=== PATIENT | female | born 1950 | race Caucasian/White ===

== ENCOUNTER → 2016-08-13 | Outpatient (CLI) | payer OTHER, BC ==
[~2016-08-13] VITALS: Ht 157.5 cm; Wt 87.2 kg
[~2016-08-13] MED LIST: AMBIEN 5 MG TABL5 M1 PO; CELEXA40 MG PO; ESTRACE1 MG PO; HALCION0.25 MG PO; INDERAL XL80 MG PO; LYRICA150 MG PO; MAXALT MLT ODT10 M1 PO; MAXALT PO; MOVANTIK25 MG PO; OXYCONTIN20 M1 PO; PERCOCET 5-3251 EACH PO; PREMPRO 0.3 MG1 EACH PO; ROBAXIN 750 MG750 M1 PO; TOPAMAX 25 MG T25 M1 PG; TOPAMAX50 MG PO; TRAMADOL 50 MG50 MG PO; VERAPAMIL HCL120 M1 PO; VERAPAMIL HCL120 M2 PO; WELLBUTRIN XL150 MG PO; ZOFRAN 4 MG ORAL4 MG PO; ZOFRAN ODT4 MG PO
--- NOTE | ~2016-08-13 | HPC ---
[facility] [place] [address] PAIN MANAGEMENT CONSULTATION Name: KAYODE KHAN Room #: REG BRENDAN Almendarez#: [id number] Admission: 08/13/16 Attend Phys: Moises Tariq DO Discharge: Date of : 48 Report #: [id number] THIS REPORT FOR: //name// CC: Alexandra Tariq The patient is a 66-year-old female well known to the pain clinic, typically seen for chronic headaches, requiring complex medication management. She has a component of myofascial pain. Last seen in the pain clinic 05/21/2016. Continued on OxyContin 20 mg b.i.d., Percocet 5/325, typically 120 tablets for 90 days, Maxalt as needed for acute exacerbation of headaches, Lyrica 150 mg b.i.d. prescribed by general labor physician. She has some opiate-induced constipation. I started Movantik. Last urine drug screen was approximately 1 year ago, 08/15/2015, positive for prescribed medications. He returns to pain clinic today, we had a prolonged visit from 13:53 to 14:20, greater than 50% of this 25+ minute visit was spent counseling the patient. She has increasing stress with significant health issues for her . He has been in and out of the hospital with an exacerbation of his chronic coronary artery disease, cardiac dysrhythmia, requiring catheter node ablation and apparently intraocular hemorrhage with decreased visual acuity in one eye. With this, the patient notes headaches have been worse. She notes her pain today 10/29. Describes chronic headaches, exacerbated with activity and weather changes. PHYSICAL EXAMINATION: Shows 66-year-old female, BMI is 35.2 kilograms per meter squared. Blood pressure is 133/79, pulse is 99, respirations are 16, has a little photophobia. Cervical range of motion is limited. Thyroids modestly enlarged. Upper extremity strength is diminished, but symmetric. Heart is regular rhythmical without murmur. Lungs are clear to auscultation. Abdomen is benign, moderately endomorphic build. Gait is tandem. We reviewed the fact that opiate medications are being used to provide analgesia adequate to support activities of daily living, not attempting to achieve a specific pain score on the 0-10 Visual Analog Scale. The current opiate medications are providing sufficient analgesia to allow the patient to participate in activities of daily living. The patient is not exhibiting any aberrant behavior suggestive of drug diversion. The patient is not having any adverse reactions to medications. The patient is not suffering from daytime somnolence or mental acuity changes. The patient is managing opiate-induced constipation with appropriate lwgv-lro-cyjbzpy agents and dietary considerations. The patient was counseled on concern for caution with operating a motor vehicle while using opiate medications. [address] [address] PAIN MANAGEMENT CONSULTATION Name: KAYODE KHAN Room #: REG BRENDAN Almendarze#: [id number] Admission: 08/13/16 Attend Phys: Moises Tariq DO Discharge: Date of : 48 Report #: [id number] A physical exam was performed and the patient's functional status was evaluated. All patients with back pain were advised against the bed rest greater than 4 days and were advised to return to normal activities. Pain score assessment was noted and the treatment plan was reviewed with the patient. All current medications, both prescribed and OTC were reviewed and reconciled on the electronic medical record. Tobacco screening was accomplished and smoking cessation was advised when indicated. BMI was noted and diet/exercise modification was recommended for all patients following outside normal parameters. I reviewed with the patient today their responsibilities to safeguard prescription medications, reviewed their responsibility to utilize medications only as prescribed by the physician. They are to seek and receive pain medications only from 1 physician group ( [facility]). They are to use 1 pharmacy and keep the clinic informed if they change pharmacies. Their responsibilities include making followup visits in a timely fashion and to avoid abrupt discontinuation of medication usage. Their responsibilities further include bringing their medications (bottles from the pharmacy with residual pills) to the visit for possible confirmation of pill counts and the patient understands it is their responsibility to submit to random drug screens to ensure both that the medications prescribed are present, and that no other controlled substances are present. All prescriptions provided today were generated electronically. ASSESSMENT: Chronic headaches, requiring complex medication management, migraine component, myofascial pain requiring complex medication management, stable on baseline opiate, OxyContin 20 mg b.i.d., Percocet 5/325 p.r.n., limit 120 tablets for 90 days, Maxalt for acute migraine headache 10 mg tablet, limit 9 tablets in 30 days; Halcion 0.25 at bedtime. RECOMMENDATIONS: We elected to discontinue Movantik due to lack of efficacy. The patient notes it was quite helpful initially, but she seems to become somewhat tolerant to the effects. She is continuing with stool softeners, MiraLax, fluid, etc. Lastly, we talked about migraine prophylaxis. With blood pressure of 133/79, pulse of 99, we have elected to start propranolol extended release 80 mg at bedtime for 7 days, increased to 2 tablets daily. The patient cautioned about lightheadedness, presyncope with position changes, postural hypotension. If any of these come problematic, she is to drop back to 1 propranolol at bedtime. Urine drug screen was accomplished today. No aberrant behavior suggestive for drug diversion, simply complying with our opiate consent to treat contract. [facility] [address] [place] [address] PAIN MANAGEMENT CONSULTATION Name: KAYODE KHAN [facility] [id number] Admission: 08/13/16 Attend Phys: Moises Tariq DO Discharge: Date of : 48 Report #: [id number] The patient was discharged in good and stable condition. Follow up in 3 months for reevaluation. <ELECTRONICALLY SIGNED> By: Moises Tariq DO 08/14/16 0713 1518 2324 Moises Tariq DO /nt
[2016-08-13 13:51] VITALS: BP 133/79
== END | disposition home or self-care (01) ==
LOC: PAIN 07:21
DX: M79.1 Myalgia (principal); I25.10 Atherosclerotic heart disease of native coronary artery without angina pectoris; I49.9 Cardiac arrhythmia, unspecified; G43.909 Migraine, unspecified, not intractable, without status migrainosus

== ENCOUNTER → 2016-11-13 | Outpatient (CLI) | payer OTHER, BC ==
[~2016-11-13] VITALS: Ht 157.5 cm; Wt 85.7 kg
[~2016-11-13] MED LIST changes: +CYMBALTA30 MG PO
--- NOTE | ~2016-11-13 | HPC ---
[facility] [place] [address] PAIN MANAGEMENT CONSULTATION Name: KAYODE KHAN [facility] #: [facility] [id number] Admission: 11/13/16 Attend Phys: Moises Tariq DO Discharge: Date of : 48 Report #: [id number] THIS REPORT FOR: //name// CC: Alexandra Tariq HISTORY OF PRESENT ILLNESS: The patient is a 66-year-old female being treated for chronic headaches, myofascial pain requiring complex medication management. The patient was last seen 08/13/2016. Continued on OxyContin 20 mg b.i.d.; Percocet 5/325, 120 tablets typically lasts for 90 days. Maxalt for acute exacerbation of headaches, Lyrica 150 mg b.i.d. and Movantik for opioid-induced constipation. She returns to pain clinic today noting medications typically help with her chronic headaches. She still rates her pain at 8 on VAS. Notes, she has had a headache daily; she tells me she has not had a single day in the past year which she did not have some cervical headache. She notes activity and weather changes do make headaches worse. Medication, rest and cold as well as dark environment seem to help some with her subjective symptoms. PHYSICAL EXAMINATION: GENERAL: Unchanged. A 66-year-old female, BMI is 34.6 kilograms per meter squared. VITAL SIGNS: Stable. NEUROLOGIC: Cranial nerves 2-12 are grossly intact. HEENT: Pupils equal, reactive to light and accommodation. Extraocular muscles are intact. She does have pinpoint pupils but again they are reactive. NECK: Cervical range of motion is limited, some diffuse tenderness in the splenius capitis and trapezius. No discrete trigger points noted. We reviewed the fact that opiate medications are being used to provide analgesia adequate to support activities of daily living, not attempting to achieve a specific pain score on the 0-10 Visual Analog Scale. The current opiate medications are providing sufficient analgesia to allow the patient to participate in activities of daily living. The patient is not exhibiting any aberrant behavior suggestive of drug diversion. The patient is not having any adverse reactions to medications. The patient is not suffering from daytime somnolence or mental acuity changes. The patient is managing opiate-induced constipation with appropriate ekny-lhb-epxqtxa agents and dietary considerations. The patient was counseled on concern for caution with operating a motor vehicle while using opiate medications. A physical exam was performed and the patient's functional status was evaluated. All patients with back pain were advised against the bed rest greater than 4 days and were advised to return to normal activities. Pain score assessment was noted and the treatment plan was reviewed with the patient. All current medications, both prescribed and OTC were reviewed and reconciled on the electronic medical record. Tobacco screening was accomplished and smoking [address] [address] PAIN MANAGEMENT CONSULTATION Name: KAYODE KHAN Room #: REG [facility] [id number] Admission: 11/13/16 Attend Phys: Moises Tariq DO Discharge: Date of : 48 Report #: [id number] cessation was advised when indicated. BMI was noted and diet/exercise modification was recommended for all patients following outside normal parameters. I reviewed with the patient today their responsibilities to safeguard prescription medications, reviewed their responsibility to utilize medications only as prescribed by the physician. They are to seek and receive pain medications only from 1 physician group ( [facility]). They are to use 1 pharmacy and keep the clinic informed if they change pharmacies. Their responsibilities include making followup visits in a timely fashion and to avoid abrupt discontinuation of medication usage. Their responsibilities further include bringing their medications (bottles from the pharmacy with residual pills) to the visit for possible confirmation of pill counts and the patient understands it is their responsibility to submit to random drug screens to ensure both that the medications prescribed are present, and that no other controlled substances are present. All prescriptions provided today were generated electronically. ASSESSMENT: Chronic headaches, migraine component likely stress component, requiring high-risk complicated medication management. RECOMMENDATION: Discussion with the patient today about therapeutic options, ultimately have elected to continue baseline medications unchanged including OxyContin 20 mg b.i.d. and Percocet 5/325, limit 120 tablets for 90 days. We did talk about Botox injections for chronic migraines. She certainly meets the criteria having failed calcium channel and sodium channel membrane stabilizing agents due to hypotension, having failed Maxalt, she currently utilizes this and still has a "headache daily." She has failed membrane stabilizing agents, currently on Lyrica again with ongoing headaches though she feels there is some efficacy with current medication. The patient was discharged in good and stable condition. Told her we can consider Botox at some future point. Otherwise, we will see her back in 3 months for reevaluation and medication renewal. Last urine drug screen 08/13/2016 was positive for prescribed medications and no others. <ELECTRONICALLY SIGNED> By: Moises Tariq DO 11/16/16 1253 1520 2211 Moises Tariq DO /nt
[2016-11-13 14:42] VITALS: BP 145/75
== END ==
LOC: PAIN 07:09
DX: R51 Headache (principal)

== ENCOUNTER → 2017-05-06 | Outpatient (CLI) | payer OTHER, BC ==
[~2017-05-06] VITALS: Ht 157.5 cm; Wt 80.5 kg
[~2017-05-06] MED LIST changes: +FROVA2.5 MG PO; +HALCION0.125 MG PO; +MAXALT MLT10 MG PO; +NORTRIPTYLINE H10 M2 PO; +OXYCONTIN15 MG PO
--- NOTE | ~2017-05-06 | HPC ---
[facility] [place] [address] PAIN MANAGEMENT CONSULTATION Name: KAYODE KHAN Room #: REG [facility] Erickson#: [id number] Admission: 05/06/17 Attend Phys: Moises Tariq DO Discharge: Date of : 48 Report #: [id number] THIS REPORT FOR: //name// CC: Alexandra Tariq The patient is a 67-year-old female being treated for headaches, chronic pain syndrome requiring complex medication management. Last seen in the pain clinic on 02/05/2017. Continued on OxyContin 20 mg b.i.d., Percocet 5/325, up to 4 a day. Maxalt, Lyrica and occasional Zofran for nausea. The patient returns to pain clinic today. She has a followup appointment with an ENT, is scheduled, has some right otitis media, which has exacerbated headaches. Otherwise, functional assessment tool scores pain is 59/70. Subjective pain is 9 on a VAS. Physical exam is relatively unchanged. A 67-year-old female, BMI is 32.4 kilograms per meter squared. Vital signs are stable as noted on the EMR. She seems upbeat today. Cervical range of motion is modestly limited. Subjective pain in the bilateral posterior occipital area and little photophobia. We reviewed her opiate consent to treat contract, signed 11/18/2015. We reviewed the patient's last random drug screen on 08/13/2016, positive for prescribed medications and no others. ASSESSMENT: Symptomatic chronic headaches, chronic pain syndrome requiring high risk complex medication management. RECOMMENDATIONS: Long discussion with the patient today about therapeutic option. We had tried to get the patient approved for Botox injections, often helpful for chronic headaches, but was unable to get this approved. Today, we did elect to trial some nortriptyline 10 mg 1 or 2 at bedtime as a headache prophylaxis along with her other current medications including OxyContin 20 mg b.i.d., Percocet 5/325, up to 4 a day, Maxalt, Lyrica, and p.r.n. Zofran. Follow up in 2 months for reevaluation, earlier if needed. <ELECTRONICALLY SIGNED> By: Moises Tariq DO 05/12/17 0724 0711 1034 Moises Tariq DO /nt
[2017-05-06 11:42] VITALS: BP 140/86
== END ==
LOC: PAIN 07:13
DX: G89.29 Other chronic pain (principal); R51 Headache; Z79.899 Other long term (current) drug therapy

== ENCOUNTER → 2017-07-29 | Outpatient (CLI) | payer OTHER, BC ==
[~2017-07-29] VITALS: Ht 157.5 cm; Wt 80.5 kg
[~2017-07-29] MED LIST changes: -MAXALT MLT10 MG PO; -OXYCONTIN15 MG PO
--- NOTE | ~2017-07-29 | HPC ---
[facility] [place] [address] PAIN MANAGEMENT CONSULTATION Name: KAYODE KHAN Room #: REG [facility] M..#: [id number] Admission: 07/29/17 Attend Phys: Moises Tariq DO Discharge: Date of : 46 Report #: [id number] THIS REPORT FOR: //name// CC: Alexandra Tariq HISTORY OF PRESENT ILLNESS: The patient is a 67-year-old female, long known to the pain clinic, being treated for chronic headaches, requiring complex medication management, component of myofascial pain. Last seen in pain clinic on 05/06/2017, continue on baseline medication. The patient returns to the pain clinic today noting medications, continue to be effective with the caveat that rotation from Maxalt, Imitrex was not terribly effective. She does note that headaches continue to be problematic. She notes daily headaches that she has had since age 11. She notes headaches the last several hours include nausea, photophobia, occasional emesis and phonophobia. She rates the pain 8 on a VAS at present. Pain impact score is quite high at 59/70. PHYSICAL EXAMINATION: GENERAL: Reveals a 67-year-old female. VITAL SIGNS: BMI is 32.4 kilograms per meter squared. Blood pressure 147/73, pulse 109 and respirations 20. NEUROLOGICAL: Cranial nerves 2 through 12 are grossly intact. She does have some photophobia. MUSCULOSKELETAL: Cervical range of motion is modestly limited. Upper extremity strength is preserved. Gait is tandem. Lower extremity strength is preserved. Opiate risk assessment tool was signed on 11/18/2015, reviewed the patient's risks and responsibilities. Long discussion with the patient today about therapeutic option. I have taken the liberty of filling out a Botox application form noting the patient has failed to prophylactic agents, years of verapamil and most recently, I started the patient on nortriptyline last visit, she tried this for 1 month with dysphoria and hallucinations and she quit. She has failed Fiorinal, Imitrex, Maxalt and multiple NSAID agents. By definition, she does meet all criteria for Botox injections. We will refer the patient's Botox request form and documentation to Dr. Lavonne Parmar. I have taken the liberty of renewing current narcotic medication, unchanged; OxyContin 20 mg b.i.d. and Percocet 5/325, limit 4 a day. This equates to 60 mg oxycodone or 90 mg of morphine equivalents. We did talk about risks of chronic opiate use. [address] [address] PAIN MANAGEMENT CONSULTATION Name: KAYODE KHAN Room #: REG [facility].#: [id number] Admission: 07/29/17 Attend Phys: Moises Tariq DO Discharge: Date of : 48 Report #: [id number] The patient was discharged in good and stable condition. Medication renewed. Follow up in 2 months for reevaluation. I did discuss with the patient that I will be leaving the practice. She initially started with Dr. Arun Webb. She would like to return to his care. I will see if her schedule allows to see her or if she will need to find another health care provider and her network. Discharged in good and stable condition. <ELECTRONICALLY SIGNED> By: Moises Tariq DO 08/02/17 0711 1627 2335 Moises Tariq DO /nt
[2017-07-29 14:42] VITALS: BP 147/73
== END ==
LOC: PAIN 05:55
DX: R51 Headache (principal); Z79.899 Other long term (current) drug therapy

== ENCOUNTER → 2017-12-31 | Outpatient (CLI) | payer OTHER, BC ==
[~2017-12-31] VITALS: Ht 157.5 cm; Wt 80.7 kg
[~2017-12-31] MED LIST changes: +MAXALT MLT10 MG PO; +OXYCONTIN15 MG PO
--- NOTE | ~2017-12-31 | HPC ---
[facility] [place] [address] PAIN MANAGEMENT CONSULTATION Name: KAYODE KHAN Room #: REG BRENDAN TedMecheDrake#: [id number] Admission: 12/31/17 Attend Phys: Carlota Ewing MD Discharge: Date of : 48 Report #: [id number] THIS REPORT FOR: //name// CC: Carlota Brooks DATE OF SERVICE: 12/31/2017 PRIMARY CARE PHYSICIAN: Alexandra Brooks M.D. CHIEF COMPLAINT: Headaches, here for medication refill. HISTORY OF PRESENT ILLNESS: The patient is a 67-year-old female who has been followed by Dr. Moises Tariq. She has history of chronic headaches. She has a mixed disorder including some migraines as well as tension headaches. She also suffers from fibromyalgia. She has been treated with complex medical management by Dr. Tariq. The patient feels that her medications have been helpful. She has had a problem with headaches since age 11. Rates her pain today as an 8/10. Notes that the pain has changed secondary to the change in the weather. It has gone from 70 degrees to about 50 degrees. She notes that sometimes rest as well as use of cold and a dark environment can be beneficial. She returns today with a desire to have renewal of her medications. ALLERGIES: COMPAZINE, DURACEF. PAST MEDICAL HISTORY: Colon problems, stomach problems, joint disease/arthritis, history of ulcers. PAST SURGICAL HISTORY: Hemorrhoid surgery in 1967, calcium deposit in breast 1985. REVIEW OF SYSTEMS: As per HPI. PAIN CLINIC ASSESSMENT AND PQRS: 1. 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 The patient has not been treated for rheumatoid arthritis. 2. Height 5 feet 2 inches, weight 177 pounds, BMI is 32.5. 3. Vital signs: Blood pressure 140/79, pulse is 109, respiratory rate 16, room air saturation is 97%. 4. Pain intensity /10. 5. Fall risk. The patient has not fallen in the last 3 months. 6. Blood thinner. The patient is not on a blood thinning medication. 7. Hypertension. The patient is not being treated for hypertension. 8. Opioid therapy. The patient receives her medications from one source, the pain clinic. [address] [address] PAIN MANAGEMENT CONSULTATION Name: KAYODE KHAN Room #: REG [facility]#: [id number] Admission: 12/31/17 Attend Phys: Carlota Ewing MD Discharge: Date of : 48 Report #: [id number] 9. Risk assessment tool, low risk 0/3 for opioid use. 10. Functional assessment tool, 59/70. 11. Recreational drug use: The patient denies. 12. Tobacco: The patient has never smoked. 13. Alcohol: The patient denies frequent use of alcoholic beverages. PHYSICAL EXAMINATION: GENERAL: The patient is a well-developed, well-nourished, white female. Affect is appropriate. Speech is fluent. HEENT: Normocephalic, atraumatic. Extraocular eye muscles intact. Sclerae nonicteric. Mucous membranes are moist. The patient states that she is having some problems with her left lower jaw. There is some swelling in this area. She has been told that there might be some infection in this area. The patient has some thinning of her hair with alopecia. Complains of headache pain. HEART: Regular rate. The patient states that she does have a mitral valve problem with regurgitation. Overall, it is not clinically causing the problems. RECOMMENDATIONS: We discussed treatment options with the patient. At this juncture, she finds her medications are helpful. We will continue with the prescriptions. She found that Frova was helpful. At this juncture, she would like to return to Maxalt 10 mg. We have written for this medication. A script for OxyContin 15 mg, Percocet 5 mg, Zofran 4 mg, Halcion 0.125 mg and Maxalt 10 mg have been rewritten. The patient will follow up in the near future. We would like to thank you for letting us participate in her care. We hope she continues to improve. <ELECTRONICALLY SIGNED> By: Carlota Ewing MD 01/03/18 1125 1819 0212 Carlota Ewing MD /[facility]
[2017-12-31 14:44] VITALS: BP 140/79
== END ==
LOC: PAIN 07:09
DX: G44.229 Chronic tension-type headache, not intractable (principal); Z79.899 Other long term (current) drug therapy

== ENCOUNTER → 2018-02-28 | Outpatient (CLI) | payer OTHER, BC ==
[~2018-02-28] VITALS: Ht 157.5 cm; Wt 80.3 kg
--- NOTE | ~2018-02-28 | HPC ---
[facility] [place] [address] PAIN MANAGEMENT CONSULTATION Name: KAYODE KHAN Room #: REG De Almendarez#: [id number] Admission: 02/28/18 Attend Phys: Michelle Louise Discharge: Date of : 46 Report #: [id number] THIS REPORT FOR: //name// CC: Michelle Louise Alexandra Kimball DATE OF SERVICE: 02/28/2018 CHIEF COMPLAINT: Headache and tooth pain. Here for medication refill. HISTORY OF PRESENT ILLNESS: This is a very pleasant 67-year-old female who has been seen in the pain clinic for several years by Dr. Moises Tariq. She has a history of chronic headaches. She has a mixed disorder including some migraines as well as tension headaches and she also has fibromyalgia. She is here today for medication refill. She tells me that aside from her headaches, she has been having teeth pain. She has been having to have several dental procedures done including a root canal and pulling of teeth and several other things that she listed for her mouth. She has had to take more Percocet since her last appointment. The patient tells me she typically takes 1 Percocet a day because of all this oral dental work and oral surgery she is needing. She had to take more tablets a day. The farmworker [employer] did offer her a narcotic script. The patient refused since she is under contract here at the clinic, so she made an appointment to come back and discuss other further treatment options regarding her oral surgeries that still need to be done. MEDICATIONS: Compazine and Duricef. Current list of medications: She takes Percocet 5 mg/325 one daily, Halcion 0.125 at bedtime, Maxalt 10 mg at onset of headache, OxyContin 50 mg b.i.d., Zofran 4 mg every 8 hours p.r.n., Frova 2.5 mg onset of headache, Cymbalta 90 mg daily, Prempro 0.3/1.5 mg daily, Robaxin 750 mg, Tylenol Extra Strength 500 mg p.r.n. PQRS: 1. She has a history of rheumatoid arthritis involving her hands and fingers. She is not being treated for rheumatoid arthritis. 2. Height is 5 feet 2 inches, weight is 177, BMI is 32.4. 3. Vital signs: Blood pressure 147/78, pulse is 106, respirations 16, oxygen sat is 96%. 4. Her pain score is 8/10. 5. Fall risk. She denies dizziness, does not need help walking or standing and has not fallen in the last 3 months. 6. She is not on any blood thinners. She does not take antihypertensive medicines. 7. Opioid therapy is greater than 6 weeks, therefore, an opioid signed contract is on the chart. 8. Risk assessment tool is low. Her functional assessment is 59/70. 9. Recreational drug use. She denies. She is not a [place] [address] PAIN MANAGEMENT CONSULTATION Name: KAYODE KHAN Room #: REG BRENDAN Almendarez#: [id number] Admission: 02/28/18 Attend Phys: Michelle Louise Discharge: Date of : 46 Report #: [id number] alcohol. We did check her prescription monitoring system. The patient is feeling appropriately from her narcotics by doctor within this pain group. No aberrant behaviors noted and the patient tells me that she safeguards her medications. Her urine drug screen is just a year old. We will repeat that at the next visit. PHYSICAL EXAMINATION: GENERAL: This is a well-developed, well-nourished white female that appears her stated age. Her affect is appropriate and her speech is fluent. HEENT: Normocephalic, atraumatic. Extraocular eye muscles are intact. Sclerae is nonicteric. Mucous membranes are moist. The patient does have tenderness in her mouth area from recent dental procedures. The patient has some thinning of her hair with alopecia. She complains of headache pain. NECK: No JVD or adenopathy. EXTREMITIES: Range of motion is adequate. Muscle strength is judged to be 5/5 in all major muscle groups in upper and lower extremities. IMPRESSION: 1. Chronic headaches including mixed disorder from migraines and tension headaches. 2. Fibromyalgia. 3. Mouth pain related to oral surgery. 4. Osteoarthritis. 5. Management of high risk medications following opioid written agreement. We reviewed the fact that opiate medications are being used to provide analgesia adequate to support activities of daily living, not attempting to achieve a specific pain score on the 0-10 Visual Analog Scale. The current opiate medications are providing sufficient analgesia to allow the patient to participate in activities of daily living. The patient is not exhibiting any aberrant behavior suggestive of drug diversion. The patient is not having any adverse reactions to medications. The patient is not suffering from daytime somnolence or mental acuity changes. The patient is managing opiate-induced constipation with appropriate sslp-fiy-jnzxsib agents and dietary considerations. The patient was counseled on concern for caution with operating a motor vehicle while using opiate medications. A physical exam was performed and the patient's functional status was evaluated. All patients with back pain were advised against the bed rest greater than 4 days and were advised to return to normal activities. Pain score assessment was noted and the treatment plan was reviewed with the patient. All current medications, both prescribed and OTC were reviewed and reconciled on the electronic medical record. Tobacco screening was accomplished and smoking cessation was advised when indicated. BMI was noted and diet/exercise modification was recommended for all patients following outside normal parameters. [address] [address] PAIN MANAGEMENT CONSULTATION Name: KAYODE KHAN Room #: REG [facility].#: [id number] Admission: 02/28/18 Attend Phys: Michelle Louise Discharge: Date of : 46 Report #: [id number] I reviewed with the patient today their responsibilities to safeguard prescription medications, reviewed their responsibility to utilize medications only as prescribed by the physician. They are to seek and receive pain medications only from 1 physician group ( [facility]). They are to use 1 pharmacy and keep the clinic informed if they change pharmacies. Their responsibilities include making followup visits in a timely fashion and to avoid abrupt discontinuation of medication usage. Their responsibilities further include bringing their medications (bottles from the pharmacy with residual pills) to the visit for possible confirmation of pill counts and the patient understands it is their responsibility to submit to random drug screens to ensure both that the medications prescribed are present, and that no other controlled substances are present. All prescriptions provided today were generated electronically. PLAN: 1. The patient returns today to discuss her medication options. She tells me that her medications have been very helpful except that recently she has been having multiple oral surgeries and is requiring several more. Therefore, this has been requiring her to take more of her Percocet pain pills than her normal once a day dosing. The patient tells me that she did refuse prescription pain medicines from her farmworker [employer] and wanted to discuss it with her pain specialist. 2. We determined the plan. The patient will not take any Percocet tablets until her next dental procedure, which the patient thinks will be in the next 2 weeks, but continue her long-acting OxyContin dose until surgery. After she has her oral surgery, then she will take Percocet 2-3 times a day as needed for the first initial postop period, then decrease it as she is able fairly quickly. If the patient will need further script, she will call our office and we will then give her a short script of Percocet to get her through this time of surgery. The patient is agreeable with this plan. A script was given today for her OxyContin 15 mg to be released in 4 and 8 weeks. Next medicine Halcion 0.125 at bedtime, #30 with 2 additional refills. 3. Zofran 4 mg #18 with 2 additional refills, Frova 2.5 #10 with 2 additional refills, Maxalt 10 mg #18 with 1 additional refill, and Percocet 5/325 one tablet 4 times a day, #120 given with no refills or no additional scripts for that. 4. The patient is agreeable with this plan of care. We will follow up in 3 months' time period unless she needs further prescriptions regarding ongoing surgeries. The patient is seen today in collaboration with Dr. Arun Webb. <ELECTRONICALLY SIGNED> By: Micehlle Louise 03/01/18 [id number] Michelle Louise /otto
[2018-02-28 10:16] VITALS: BP 147/78
== END ==
LOC: PAIN 00:33
DX: G43.909 Migraine, unspecified, not intractable, without status migrainosus (principal); G44.209 Tension-type headache, unspecified, not intractable; M79.7 Fibromyalgia; M19.90 Unspecified osteoarthritis, unspecified site; K13.79 Other lesions of oral mucosa; Z79.891 Long term (current) use of opiate analgesic; Z79.899 Other long term (current) drug therapy

== ENCOUNTER → 2018-06-07 | Outpatient (CLI) | payer OTHER, BC ==
[~2018-06-07] VITALS: Ht 157.5 cm; Wt 81.2 kg
[~2018-06-07] MED LIST changes: +OXYCODONE-ACET1 EAC2 PO
[2018-06-07 11:06] VITALS: BP 140/75
--- NOTE | 2018-06-07 11:09 | NUR ---
Pain Clinic Assessment: 1. History of Osteoarthritis: hands History of Rheumatoid Arthritis: Not Applicable 2. Height: 5 ft. 2 in. 157.5 cm. Weight: 179.0 lb. oz. 81.194 kg. Patient's BMI: 32.7 3. Vital Signs: BP: 140/75 Pulse: 101 Resp: 16 Temp: 02 Sat: 98 ECG Mon: 4. Pain Intensity: 8 5. Fall Risk: Dizziness: N Needs help standing or walking: N Fallen in the last 3 months: N Fall risk comments: 6. Patient on Blood Thinner: None 7. History of Hypertension: N 8. Opioid Therapy greater than 6 weeks: Y Opiate Contract Signed: 11/18/15 9. Risk Assessment Tool Provided: LOW RISK 0/3 10. Functional Assessment Tool: 59/70 11. Recreational Drug Use: Never Drug Type: Tobacco Use: Never Smoker Tobacco Type: Amount or Packs/day: How Many Years: Alcohol Use: No Frequency: Quant:
--- NOTE | 2018-06-08 08:06 | HPC ---
[facility] [place] [address] PAIN MANAGEMENT CONSULTATION Name: KAYODE KHAN Room #: REG [facility] M..#: [id number] Admission: 06/07/18 ������������������ Attend Phys: Michelle Louise Discharge: ������������������ Date of : 46 Report #: [id number] THIS REPORT FOR: //name// CC: Michelle Louise Alexandra Brooks DATE OF SERVICE: 06/07/2018 CHIEF COMPLAINT: Headache. HISTORY OF PRESENT ILLNESS: This is a very pleasant 68-year-old female who returns to the pain clinic today for refill of her medications that she takes for her chronic headaches. She tells me that her headaches have been really bad this past winter due to the fluctuation in the weather that we have had. She said last week she had a terrible migraine and was in bed for several days. Today, she is rating her pain, score is 8/10. She said the activity and the weather changes of course make it worse and that her medications are very helpful. She tells me that she still has been having ongoing dental work. This is mostly due to the bad weather that we have had that they have had to cancel several of her appointments and so she is still dealing with having oral surgery done and occasionally, does need to take an extra breakthrough pain medicine, but feels that she has adjusted to the decrease in her OxyContin from 20 to 15 mg that we have done months ago. She tells me that she is having a hard time finding OxyContin 15 mg and has had to go to several different pharmacies and wondering if we were able to reduce this medicine and that would be more helpful to have her find the medications. The patient would like also just a refill of her migraine medicines today. ALLERGIES: COMPAZINE and DURICEF. CURRENT LIST OF MEDICATIONS: Oxycodone 5/325 mg one tablet a day, Halcion 0.125 mg half a tablet at bedtime, Maxalt 10 mg as needed per headache, OxyContin 15 mg b.i.d., Zofran 4 mg ODT as needed, Frova 2.5 mg as needed for headache, Cymbalta 90 mg daily, Prempro daily and Robaxin 750 mg as needed. PQRS: 1. She has a history of osteoarthritis in her hands. She denies any rheumatoid arthritis. 2. Height is 5 feet 2 inches, weight is 179, BMI is 32. 3. Vital signs: Blood pressure 140/75, pulse is 101, respirations 16 and oxygen sat is 98. 4. Pain score is 8/10. 5. Fall risk: Denies dizziness, does not need help walking or standing, has not fallen in the last 3 months. 6. The patient is not on any blood thinners and does not take any medicine for hypertension. [facility] [address] [place] [address] PAIN MANAGEMENT CONSULTATION Name: KAYODE KHAN Room #: REG De Almendarez#: [id number] Admission: 06/07/18 ������������������ Attend Phys: Michelle Louise Discharge: ������������������ Date of : 46 Report #: [id number] 7. Opioid therapy is greater than 6 weeks; therefore, opioid signed contract is on the chart. 8. Risk assessment tool is low. Her functional assessment is 59/70. 9. Recreational drug use, she denies. She is not a smoker and does not drink alcohol. We did check the prescription monitoring system, the patient is filling appropriately for her medications of OxyContin and Halcion. The patient tells me she does safeguard her medications. There is a drug screen on her chart that is appropriate. PHYSICAL EXAMINATION: GENERAL: Well-developed, well-nourished white female who appears her stated age. Her affect is appropriate. HEENT: Normocephalic and atraumatic. Extraocular eye muscles are intact. Mucous membranes are moist. The patient does suffer some alopecia and complains of some headache pain. NECK: No JVD or adenopathy. EXTREMITIES: Muscle strength judged to be 5/5 in all major muscle groups in the upper and lower extremities. Her gait is normal. ASSESSMENT: 1. Chronic headache including mixed disorder for migraines tension headaches. 2. Fibromyalgia. 3. Mouth pain related to oral surgery that is ongoing. 4. Osteoarthritis. 5. Management of high-risk medications under terms of written opioid agreement: We reviewed the fact that opiate medications are being used to provide analgesia adequate to support activities of daily living, not attempting to achieve a specific pain score on the 0-10 Visual Analog Scale. The current opiate medications are providing sufficient analgesia to allow the patient to participate in activities of daily living. The patient is not exhibiting any aberrant behavior suggestive of drug diversion. The patient is not having any adverse reactions to medications. The patient is not suffering from daytime somnolence or mental acuity changes. The patient is managing opiate-induced constipation with appropriate kgzh-vem-byjjtmu agents and dietary considerations. The patient was counseled on concern for caution with operating a motor vehicle while using opiate medications. A physical exam was performed and the patient's functional status was evaluated. All patients with back pain were advised against the bed rest greater than 4 days and were advised to return to normal activities. Pain score assessment was noted and the treatment plan was reviewed with the patient. All current medications, both prescribed and OTC were reviewed and reconciled on the electronic medical record. Tobacco screening was accomplished and smoking cessation was advised when indicated. BMI was noted and diet/exercise [facility] [address] [place] [address] PAIN MANAGEMENT CONSULTATION Name: KAYODE KHAN Room #: REG [facility].#: [id number] Admission: 06/07/18 ������������������ Attend Phys: Michelle Louise Discharge: ������������������ Date of : 46 Report #: [id number] modification was recommended for all patients following outside normal parameters. I reviewed with the patient today their responsibilities to safeguard prescription medications, reviewed their responsibility to utilize medications only as prescribed by the physician. They are to seek and receive pain medications only from 1 physician group ( [facility]). They are to use 1 pharmacy and keep the clinic informed if they change pharmacies. Their responsibilities include making followup visits in a timely fashion and to avoid abrupt discontinuation of medication usage. Their responsibilities further include bringing their medications (bottles from the pharmacy with residual pills) to the visit for possible confirmation of pill counts and the patient understands it is their responsibility to submit to random drug screens to ensure both that the medications prescribed are present, and that no other controlled substances are present. All prescriptions provided today were generated electronically. PLAN: 1. We discussed treatment options with the patient today. The patient tells me that it has been harder to find her OxyContin medications and has been having to go to various pharmacies to find this medication. She is wondering if she would be able to decrease this medicine or there is some alternative. I explained to the patient that several of the OxyContin doses have been withdrawn from the market that being the 10 mg and the 20 mg as well as 30 and it seems like maybe 15 will be going away soon. The patient currently takes 35 mg of OxyContin a day or 52 MME. We discussed changing her to a short acting 10 mg of Percocet 10/325 mg up to 3 times a day. This would decrease her to 30 mg of oxycodone a day, placing her at 45 MME. The patient is agreeable to try this. She would like to get off her long-acting and may be even eventually in the future decrease her short acting as well, but she is agreeable to try this. It will only be reduction in 5 mg of her oxycodone, again decreasing her from 52-45 MME. We will trial this medication for one month and have the patient return to let us know how she is doing. We need to make adjustments or continue with this reduction. 2. The patient tells me that she has been taking half of the Halcion tablet and wondering if that came in a lower strength. I informed her that 0.125 mg is the lowest that it comes in. The patient has been taking half a tablet; she will continue to do so. I explained to the patient that she could take half or half every other day and try to wean herself off that medication as well. The patient tells me that she will consider that scripts given for her today of her Halcion. 3. The patient continues to take her Frova and Maxalt and Zofran as needed for her migraines. Refills of these medications were given today for 3 months. 4. The patient made an appointment for 1 month time for evaluation of these changes in her medicines. [address] [address] PAIN MANAGEMENT CONSULTATION Name: KAYODE KHAN Room #: REG BRENDAN Almendarez#: [id number] Admission: 06/07/18 ������������������ Attend Phys: Michelle Louise Discharge: ������������������ Date of : 46 Report #: [id number] 5. Care given today with Dr. Tariq who saw the patient and collaborated today. ��������������������������������������������� <ELECTRONICALLY SIGNED> ���������������������������������������� By: Michelle Louise ��������������������������������������������� 06/08/18 0806 [id number] 2018 Michelle Louise /nt
== END ==
LOC: PAIN 07:14
DX: G44.229 Chronic tension-type headache, not intractable (principal); G43.909 Migraine, unspecified, not intractable, without status migrainosus; M79.7 Fibromyalgia; M19.90 Unspecified osteoarthritis, unspecified site; K08.89 Other specified disorders of teeth and supporting structures; Z79.891 Long term (current) use of opiate analgesic; Z79.899 Other long term (current) drug therapy

== ENCOUNTER → 2018-07-04 | Outpatient (CLI) | payer OTHER, BC ==
[~2018-07-04] VITALS: Ht 157.5 cm; Wt 81.8 kg
[2018-07-04 11:11] VITALS: BP 133/75
--- NOTE | 2018-07-04 11:27 | NUR ---
Pain Clinic Assessment: 1. History of Osteoarthritis: hands History of Rheumatoid Arthritis: Not Applicable 2. Height: 5 ft. 2 in. 157.5 cm. Weight: 180.4 lb. oz. 81.829 kg. Patient's BMI: 33.0 3. Vital Signs: BP: 133/75 Pulse: 90 Resp: 18 Temp: 02 Sat: 100 ECG Mon: 4. Pain Intensity: 8 1/2 5. Fall Risk: Dizziness: N Needs help standing or walking: N Fallen in the last 3 months: N Fall risk comments: 6. Patient on Blood Thinner: None 7. History of Hypertension: N 8. Opioid Therapy greater than 6 weeks: Y Opiate Contract Signed: 11/18/15 9. Risk Assessment Tool Provided: LOW RISK 0 10. Functional Assessment Tool: / 11. Recreational Drug Use: Never Drug Type: Tobacco Use: Never Smoker Tobacco Type: Amount or Packs/day: How Many Years: Alcohol Use: No Frequency: Quant:
--- NOTE | 2018-07-05 09:46 | HPC ---
[facility] [place] [address] PAIN MANAGEMENT CONSULTATION Name: KAYODE KHAN Room #: REG [facility] MRudy.#: [id number] Admission: 07/04/18 ������������������ Attend Phys: Michelle Louise Discharge: ������������������ Date of : 46 Report #: [id number] THIS REPORT FOR: //name// CC: Michelle Louise Alexandra Brooks DATE OF SERVICE: 07/04/2018 CHIEF COMPLAINT: Headaches. HISTORY OF PRESENT ILLNESS: This is a very pleasant 68-year-old female who returns to the pain clinic today to report how she is doing since we decreased her pain medicine. The patient came to the clinic one month ago and requested to try and get off her OxyContin. That time, she was taking OxyContin 15 mg b.i.d. and one Percocet 5/325 a day, so we converted her to oxycodone 10/325 three times a day. This was a decrease from 52 MME to 45 MME per day. The patient tells me that she has had some difficult times, but unsure if it was just related to decreasing her medicines. She does realize that the long-acting OxyContin was very helpful and still trying to make the adjustments. She rates her pain score 8-10, 8 today. She thinks that her fibromyalgia has been flaring up and she is wondering if maybe she needs an increase in that medicine to offset some of her decrease in her narcotic use. She tells me she would rather be on increase of her Cymbalta than increase in opioids. She says also the weather has been playing a part in her headache, changes in her body aching. She would like to continue with the current dose for a couple of more months and see how she is doing and see if she does not stabilize. She has also been having lots of dental work. She has finally completed with all this and she thinks that will decrease some of her pain as well since that has been going on for the past year. She denies any problems with constipation and would just need a refill of her oxycodone today since we had given her other medicines at her last visit. ALLERGIES: COMPAZINE AND DURICEF. CURRENT MEDICATIONS: Maxalt, Zofran, Frova, oxycodone 10/325 t.i.d., Halcion, Cymbalta 90 mg, Prempro, and Robaxin. PQRS: 1. The patient has a history of osteoarthritis in her hands. Denies any rheumatoid arthritis. 2. Height is 5 feet 2 inches, weight is 180, BMI is 33. 3. VITAL SIGNS: 133/75, pulse is 90, respirations 18, oxygen sat is 100. 4. Pain score is 8-1/2. 5. Fall risk. Denies dizziness, does not need help walking or standing. Has not fallen in the last 3 months. 6. The patient is not on blood thinners, does not take hypertension medicines. [address] [address] PAIN MANAGEMENT CONSULTATION Name: KAYODE KHAN Room #: REG BRENADN Almendarez#: [id number] Admission: 07/04/18 ������������������ Attend Phys: Michelle Louise Discharge: ������������������ Date of : 46 Report #: [id number] 7. Opioid therapy is greater than 6 weeks. Therefore, an opioid signed contract is on the chart. Risk assessment tool is low. Functional assessment 55/70. 8. Recreational drug use, she denies. She is not a smoker and does not drink alcohol. We did check the prescription monitoring system. The patient is filling appropriately for her medications. We will check a buccal screen on this patient today since it has been greater than one year. PHYSICAL EXAMINATION: GENERAL: This is a well-developed, well-nourished white female who appears her stated age. She is alert and orientated and her affect is appropriate. HEENT: Normocephalic, atraumatic. Extraocular eye muscles are intact. The patient does suffer from some alopecia and does not complain of a headache today. NECK: No JVD or adenopathy. EXTREMITIES: Muscle strength is judged to be 5/5 in all major muscle groups in her upper and lower extremities. The patient walks with a normal gait. IMPRESSION: 1. Chronic headache including mixed disorder for migraines and tension headaches. 2. Fibromyalgia. 3. Osteoarthritis. 4. Management of high risk medication under terms of written opioid agreement. We reviewed the fact that opiate medications are being used to provide analgesia adequate to support activities of daily living, not attempting to achieve a specific pain score on the 0-10 Visual Analog Scale. The current opiate medications are providing sufficient analgesia to allow the patient to participate in activities of daily living. The patient is not exhibiting any aberrant behavior suggestive of drug diversion. The patient is not having any adverse reactions to medications. The patient is not suffering from daytime somnolence or mental acuity changes. The patient is managing opiate-induced constipation with appropriate yjrl-kcj-lekovns agents and dietary considerations. The patient was counseled on concern for caution with operating a motor vehicle while using opiate medications. A physical exam was performed and the patient's functional status was evaluated. All patients with back pain were advised against the bed rest greater than 4 days and were advised to return to normal activities. Pain score assessment was noted and the treatment plan was reviewed with the patient. All current medications, both prescribed and OTC were reviewed and reconciled on the electronic medical record. Tobacco screening was accomplished and smoking cessation was advised when indicated. BMI was noted and diet/exercise [facility] [address] [place] [address] PAIN MANAGEMENT CONSULTATION Name: KAYODE KHAN Room #: REG [facility]..#: [id number] Admission: 07/04/18 ������������������ Attend Phys: Michelle Louise Discharge: ������������������ Date of : 46 Report #: [id number] modification was recommended for all patients following outside normal parameters. I reviewed with the patient today their responsibilities to safeguard prescription medications, reviewed their responsibility to utilize medications only as prescribed by the physician. They are to seek and receive pain medications only from 1 physician group ( [facility]). They are to use 1 pharmacy and keep the clinic informed if they change pharmacies. Their responsibilities include making followup visits in a timely fashion and to avoid abrupt discontinuation of medication usage. Their responsibilities further include bringing their medications (bottles from the pharmacy with residual pills) to the visit for possible confirmation of pill counts and the patient understands it is their responsibility to submit to random drug screens to ensure both that the medications prescribed are present, and that no other controlled substances are present. All prescriptions provided today were generated electronically. PLAN: 1. We discussed treatment options. The patient is doing reasonably well on her decrease of her opioid medications. The patient would like to continue on her oxycodone 10/325. Scripts given today for #90 for today and 4-week release. The patient will return in 2 months for refills of all of her medications. If she finds that she is unable to tolerate the decrease in her medications, she will call us and make an appointment. 2. The patient is seen in collaboration with Dr. Arun Webb today. ��������������������������������������������� <ELECTRONICALLY SIGNED> ���������������������������������������� By: Michelle Louise ��������������������������������������������� 07/05/18 0946 [id number] Michelle Louise /otto
== END ==
LOC: PAIN 07:02
DX: G43.909 Migraine, unspecified, not intractable, without status migrainosus (principal); G89.29 Other chronic pain; M19.90 Unspecified osteoarthritis, unspecified site; Z79.891 Long term (current) use of opiate analgesic; Z79.899 Other long term (current) drug therapy

== ENCOUNTER → 2018-08-29 | Outpatient (CLI) | payer OTHER, BC ==
[~2018-08-29] VITALS: Ht 157.5 cm; Wt 82.0 kg
[~2018-08-29] MED LIST changes: -CYMBALTA30 MG PO; +CYMBALTA60 MG PO; +MAXALT MLT ODT10 MG PO; +ZOFRAN ODT4 MG DISSOLVE
[2018-08-29 12:40] VITALS: BP 145/74
--- NOTE | 2018-08-29 12:50 | NUR ---
Pain Clinic Assessment: 1. History of Osteoarthritis: HANDS History of Rheumatoid Arthritis: Not Applicable 2. Height: 5 ft. 2 in. 157.5 cm. Weight: 180.8 lb. oz. 82.010 kg. Patient's BMI: 33.1 3. Vital Signs: BP: 145/74 Pulse: 101 Resp: 14 Temp: 02 Sat: 100 ECG Mon: 4. Pain Intensity: 8 5. Fall Risk: Dizziness: N Needs help standing or walking: N Fallen in the last 3 months: N Fall risk comments: 6. Patient on Blood Thinner: None 7. History of Hypertension: N 8. Opioid Therapy greater than 6 weeks: Y Opiate Contract Signed: 11/18/15 9. Risk Assessment Tool Provided: LOW RISK 0 10. Functional Assessment Tool: / 11. Recreational Drug Use: Never Drug Type: Tobacco Use: Never Smoker Tobacco Type: Amount or Packs/day: How Many Years: Alcohol Use: No Frequency: Quant:
--- NOTE | 2018-08-30 14:35 | HPC ---
[facility] [place] [address] PAIN MANAGEMENT CONSULTATION Name: KAYODE KHAN Room #: REG [facility] M..#: [id number] Admission: 08/29/18 ������������������ Attend Phys: Michelle Louise Discharge: ������������������ Date of : 46 Report #: [id number] THIS REPORT FOR: //name// CC: Michelle Louise Alexandra Dryden DATE OF SERVICE: 08/29/2018 CHIEF COMPLAINT: Headaches. HISTORY OF PRESENT ILLNESS: This is a very pleasant 68-year-old female who returns to the pain clinic today with ongoing headaches. She tells me that her pain score is 8/10, which is significantly higher for her. She tells me that the weather has been bad, making her headaches worse. Also, her Cymbalta has been decreased and she thinks that is significantly affecting her fibromyalgia that is making her pain worse and she was recently diagnosed with rheumatoid arthritis in her hands and she believes this is playing a part in her pain overall. She tells me she is not having any problems with constipation or daytime sleepiness. She has spent time in a dark environment because that is helpful with her headaches and using her medications. She thinks the oxycodone does not last as long as the OxyContin, but otherwise, she feels that she does not want to go back on the OxyContin. She preferred to stay on the short-acting medicines. ALLERGIES: COMPAZINE AND DURICEF. CURRENT MEDICATIONS: Zofran 4 mg ODT p.r.n., Maxalt 10 mg p.r.n. for headache, Frova 2.5 mg p.r.n., Halcion 0.125 mg at bedtime, oxycodone 10/325 three times a day, duloxetine 60 mg daily, Prempro 0.3/1.5 mg daily and Robaxin 750 mg p.r.n. PQRS: 1. The patient has a history of osteoarthritis in her hands as well as rheumatoid arthritis. 2. Height is 5 feet 2 inches, weight is 180 and BMI is 33. 3. Vital signs, 145/74, pulse is 101, respirations 14 and oxygen sat is 100. 4. Pain score is 8/10. 5. Denies dizziness, does not need help walking or standing and has not fallen in the last 3 months. 6. The patient is not on blood thinners, does not take medicine for hypertension. 7. Opioid therapy is greater than 6 weeks; therefore, an opioid signed contract is on the chart. Her risk assessment tool is low. Her functional assessment is 55/70. 8. Recreational drug use, she denies. She is not a smoker and [place] [address] PAIN MANAGEMENT CONSULTATION Name: KAYODE KHAN Room #: REG De Almendarez#: [id number] Admission: 08/29/18 ������������������ Attend Phys: Michelle Louise Discharge: ������������������ Date of : 46 Report #: [id number] We did check the prescription monitoring system. The patient is filling appropriately for her medications and there is a recent drug screen on the chart as well that is appropriate. PHYSICAL EXAMINATION: GENERAL: This is a well-developed, well-nourished white female, who appears her stated age, placing her pain score at 8/10. She is alert and orientated and a good historian. HEENT: Normocephalic, atraumatic. Extraocular eye muscles are intact. The patient suffers from alopecia and complains of headaches that affect her entire head, temporal and occipital areas. NECK: No JVD or adenopathy. EXTREMITIES: Muscle strength is judged to be 5/5 in all major muscle groups in her upper and lower extremities. She walks with a normal gait. She does have some arthritic nodules in her hands bilaterally. IMPRESSION: 1. Chronic headache, including a mixed disorder for migraines and tension headaches. 2. Fibromyalgia. 3. Osteoarthritis. 4. Rheumatoid arthritis. 5. Management of high-risk medications under terms of written opioid agreement. We reviewed the fact that opiate medications are being used to provide analgesia adequate to support activities of daily living, not attempting to achieve a specific pain score on the 0-10 Visual Analog Scale. The current opiate medications are providing sufficient analgesia to allow the patient to participate in activities of daily living. The patient is not exhibiting any aberrant behavior suggestive of drug diversion. The patient is not having any adverse reactions to medications. The patient is not suffering from daytime somnolence or mental acuity changes. The patient is managing opiate-induced constipation with appropriate pfrv-vra-gumjjuk agents and dietary considerations. The patient was counseled on concern for caution with operating a motor vehicle while using opiate medications. A physical exam was performed and the patient's functional status was evaluated. All patients with back pain were advised against the bed rest greater than 4 days and were advised to return to normal activities. Pain score assessment was noted and the treatment plan was reviewed with the patient. All current medications, both prescribed and OTC were reviewed and reconciled on the electronic medical record. Tobacco screening was accomplished and smoking cessation was advised when indicated. BMI was noted and diet/exercise modification was recommended for all patients following outside normal parameters. [address] [address] PAIN MANAGEMENT CONSULTATION Name: KAYODE KHAN Room #: REG [facility]#: [id number] Admission: 08/29/18 ������������������ Attend Phys: Michelle Louise Discharge: ������������������ Date of : 46 Report #: [id number] I reviewed with the patient today their responsibilities to safeguard prescription medications, reviewed their responsibility to utilize medications only as prescribed by the physician. They are to seek and receive pain medications only from 1 physician group ( [facility]). They are to use 1 pharmacy and keep the clinic informed if they change pharmacies. Their responsibilities include making followup visits in a timely fashion and to avoid abrupt discontinuation of medication usage. Their responsibilities further include bringing their medications (bottles from the pharmacy with residual pills) to the visit for possible confirmation of pill counts and the patient understands it is their responsibility to submit to random drug screens to ensure both that the medications prescribed are present, and that no other controlled substances are present. All prescriptions provided today were generated electronically. PLAN: 1. We discussed treatment options with the patient today. The patient feels like her pain has increased significantly, unsure if it was the switch from OxyContin to oxycodone, but does not wish to go back to OxyContin. We did discuss that is a shorter duration acting medication, so it will not last the 12 hours that her OxyContin did. We did talk about trying to split her 10/325 pills in half and take 1 every 4 hours and see if that is helpful. The patient will try that this month and see if she feels that it is more beneficial. 2. The patient tells me that she was diagnosed with rheumatoid arthritis through lab work, but has not seen a body corporate manager. I encouraged her to contact her nurse practitioner that did refer her to the body corporate manager to see where that appointment is, since she is having significant increased pain. 3. Prescriptions given today for her Percocet 10/325, #90 for today and 4-week release; Halcion 0.125, #30, with 1 refill; Frova 2.5 mg, 10 with 1 refill; Maxalt 10 mg, 18 with 1 refill and Zofran 4 mg, #18 with one additional refill. 4. I have discussed this patient with Dr. Webb and reviewed the chart for medication needs. He is available by phone if additional collaboration was needed today. The patient will return in 2-month time period. ��������������������������������������������� <ELECTRONICALLY SIGNED> ���������������������������������������� By: Michelle Louise ��������������������������������������������� 08/30/18 1435 [id number] Michelle Louise /nt
== END ==
LOC: PAIN 06:50
DX: R51 Headache (principal); G89.29 Other chronic pain; M19.90 Unspecified osteoarthritis, unspecified site; M79.7 Fibromyalgia; G43.909 Migraine, unspecified, not intractable, without status migrainosus; G44.89 Other headache syndrome

== ENCOUNTER → 2018-10-20 | Outpatient (CLI) | payer OTHER, BC ==
[~2018-10-20] VITALS: Ht 157.5 cm; Wt 81.4 kg
[~2018-10-20] MED LIST changes: +TOPAMAX 25 MG T25 M1 PO
[2018-10-20 13:27] VITALS: BP 136/78
--- NOTE | 2018-10-20 13:53 | NUR ---
Pain Clinic Assessment: 1. History of Osteoarthritis: HANDS History of Rheumatoid Arthritis: Not Applicable 2. Height: 5 ft. 2 in. 157.5 cm. Weight: 179.4 lb. oz. 81.375 kg. Patient's BMI: 32.8 3. Vital Signs: BP: 136/78 Pulse: 89 Resp: 16 Temp: 02 Sat: 98 ECG Mon: 4. Pain Intensity: 8 5. Fall Risk: Dizziness: N Needs help standing or walking: N Fallen in the last 3 months: N Fall risk comments: 6. Patient on Blood Thinner: None 7. History of Hypertension: N 8. Opioid Therapy greater than 6 weeks: Y Opiate Contract Signed: 11/18/15 9. Risk Assessment Tool Provided: LOW RISK 0 10. Functional Assessment Tool: 55/70 11. Recreational Drug Use: Never Drug Type: Tobacco Use: Never Smoker Tobacco Type: Amount or Packs/day: How Many Years: Alcohol Use: No Frequency: Quant:
--- NOTE | 2018-10-26 07:20 | HPC ---
[facility] [place] [address] PAIN MANAGEMENT CONSULTATION Name: KAYODE KHAN Room #: REG [facility] M..#: [id number] Admission: 10/20/18 ������������������ Attend Phys: Michelle Louise Discharge: ������������������ Date of : 46 Report #: [id number] THIS REPORT FOR: //name// CC: Michelle Louise Alexandra [place] DATE OF SERVICE: 10/20/2018 CHIEF COMPLAINT: Headaches. HISTORY OF PRESENT ILLNESS: This is a very pleasant 68-year-old female who returns to the pain clinic today for refill of her medications that she uses to treat her migraine headaches. She tells me that it is on 8/10 today, fairly constant headaches, worse with weather changes and activities. She tells me that the other medicines she uses to help treat her migraines are helpful as well as a dark environment. 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 She is going to see Dr. Morales on 11/07/2018 for her fibromyalgia and hopefully discuss her rheumatoid issues as well at that time. She reports today that she would like an increase in her opioid medications. She feels that she is not being quite controlled with her migraines as she has in the past. ALLERGIES: COMPAZINE AND DURICEF. CURRENT MEDICATIONS: Zofran 4 mg ODT p.r.n., Maxalt 10 mg onset of headache, Frova 2.5 mg onset of headache, Halcion 0.125 half at bedtime p.r.n., oxycodone 10/325 t.i.d., Cymbalta 60 mg daily, Prempro daily and methocarbamol 750 mg p.r.n. PQRS: 1. She has a history of osteoarthritis in her hands as well as recently diagnosed with rheumatoid arthritis. 2. Height is 5 feet 2 inches, weight is 179, BMI is 32. 3. Vital Signs: Blood pressure 136/78, pulse is 89, respirations 16, oxygen sat is 98. 4. Pain score is 8/10. 5. Fall risk. Denies dizziness, does not need help walking or standing, has not fallen in the last 3 months. 6. The patient is not on any blood thinners or does not take medicine for hypertension. 7. Opiate therapy is greater than 6 weeks; therefore, an opioid signed contract is on the chart. Her risk assessment tool is low. Functional assessment is 55/70. 8. Recreational drug use, she denies. She is not a [place]oker [place] [address] PAIN MANAGEMENT CONSULTATION Name: KAYODE KHAN Room #: REG [facility]#: [id number] Admission: 10/20/18 ������������������ Attend Phys: Michelle Louise Discharge: ������������������ Date of : 46 Report #: [id number] alcohol. According to the prescription monitoring system, the patient is due in a few days to fill her prescriptions. She does fill in a timely fashion and safeguards her meds at all time. There is also a recent drug screen on the chart that is appropriate for her medications as well. PHYSICAL EXAMINATION: GENERAL: This is a well-developed, well-nourished white female who appears her stated age, placing her current pain score at 8/10 today. She is alert and orientated. HEENT: Normocephalic, atraumatic. Extraocular eye muscles are intact. She suffers from alopecia and complains of headache that encompass the entire head, especially the temporal and occipital areas. NECK: No JVD or adenopathy. MUSCULOSKELETAL: Muscle strength is judged to be 5/5 in all major muscle groups in her upper extremities and lower extremities with equal symmetry and tone. She walks with a normal gait. She does have arthritic nodules on her bilateral hands. IMPRESSION: 1. Chronic headache including mixed disorder of migraines and tension headache. 2. Fibromyalgia. 3. Osteoarthritis. 4. Rheumatoid arthritis. 5. Management of opioid medications under terms of written opioid agreement. We reviewed the fact that opiate medications are being used to provide analgesia adequate to support activities of daily living, not attempting to achieve a specific pain score on the 0-10 Visual Analog Scale. The current opiate medications are providing sufficient analgesia to allow the patient to participate in activities of daily living. The patient is not exhibiting any aberrant behavior suggestive of drug diversion. The patient is not having any adverse reactions to medications. The patient is not suffering from daytime somnolence or mental acuity changes. The patient is managing opiate-induced constipation with appropriate iwgx-ygf-aazlbzn agents and dietary considerations. The patient was counseled on concern for caution with operating a motor vehicle while using opiate medications. A physical exam was performed and the patient's functional status was evaluated. All patients with back pain were advised against the bed rest greater than 4 days and were advised to return to normal activities. Pain score assessment was noted and the treatment plan was reviewed with the patient. All current medications, both prescribed and OTC were reviewed and reconciled on the electronic medical record. Tobacco screening was accomplished and smoking cessation was advised when indicated. BMI was noted and diet/exercise [address] [address] PAIN MANAGEMENT CONSULTATION Name: KAYODE KHAN Room #: REG [facility]#: [id number] Admission: 10/20/18 ������������������ Attend Phys: Michelle SORAIDA Dani Discharge: ������������������ Date of : 46 Report #: [id number] modification was recommended for all patients following outside normal parameters. I reviewed with the patient today their responsibilities to safeguard prescription medications, reviewed their responsibility to utilize medications only as prescribed by the physician. They are to seek and receive pain medications only from 1 physician group ( [facility]). They are to use 1 pharmacy and keep the clinic informed if they change pharmacies. Their responsibilities include making followup visits in a timely fashion and to avoid abrupt discontinuation of medication usage. Their responsibilities further include bringing their medications (bottles from the pharmacy with residual pills) to the visit for possible confirmation of pill counts and the patient understands it is their responsibility to submit to random drug screens to ensure both that the medications prescribed are present, and that no other controlled substances are present. All prescriptions provided today were generated electronically. PLAN: 1. We discussed treatment options with the patient today. Dr. Webb was present for part of this discussion. The patient does not feel that her migraines are as well controlled as they used to. We did discuss Botox. The patient says she is not able to get that covered by her insurance company; therefore, we discussed Topamax. The patient has never taken this medication before. We will start slowly and increase starting at 50 mg at bedtime, increasing to 50 mg b.i.d. after a week, then to 75 mg at night and 50 in the morning for a week and then 75 b.i.d. for a week. The patient to call then, we may continue increasing up to 100 mg b.i.d. The patient is instructed to take the lowest most effective dose. 2. Scripts given today for her Zofran 18 tablets with one refill, Frova 2.5 mg 10 with 1 refill, Maxalt 10 mg 18 tablets with 1 refill, oxycodone 10/325 t.i.d., #90 for today and 4-week release. 3. The patient to call if she has issues with her medications. The patient seen in collaboration with Dr. Arun Webb today who did discuss this case with her as well. ��������������������������������������������� <ELECTRONICALLY SIGNED> ���������������������������������������� By: Michelle Louise ��������������������������������������������� 10/26/18 0720 [id number] Michelle Louise /nt
== END ==
LOC: PAIN 06:46
DX: G43.909 Migraine, unspecified, not intractable, without status migrainosus (principal); G44.89 Other headache syndrome; M19.90 Unspecified osteoarthritis, unspecified site; M06.9 Rheumatoid arthritis, unspecified; M79.7 Fibromyalgia; Z79.891 Long term (current) use of opiate analgesic; Z79.899 Other long term (current) drug therapy; Z88.8 Allergy status to other drugs, medicaments and biological substances

== ENCOUNTER → 2018-12-16 | Outpatient (CLI) | payer OTHER, BC ==
[~2018-12-16] VITALS: Ht 157.5 cm; Wt 81.3 kg
[~2018-12-16] MED LIST changes: +NORTRIPTYLINE H25 M3 PO
[2018-12-16 10:22] VITALS: BP 136/77
--- NOTE | 2018-12-16 10:25 | NUR ---
Pain Clinic Assessment: 1. History of Osteoarthritis: HANDS History of Rheumatoid Arthritis: HANDS 2. Height: 5 ft. 2 in. 157.5 cm. Weight: 179.2 lb. oz. 81.285 kg. Patient's BMI: 32.8 3. Vital Signs: BP: 136/77 Pulse: 100 Resp: 18 Temp: 02 Sat: 98 ECG Mon: 4. Pain Intensity: 8 5. Fall Risk: Dizziness: N Needs help standing or walking: N Fallen in the last 3 months: N Fall risk comments: 6. Patient on Blood Thinner: None 7. History of Hypertension: N 8. Opioid Therapy greater than 6 weeks: Y Opiate Contract Signed: 11/18/15 9. Risk Assessment Tool Provided: LOW RISK 0 10. Functional Assessment Tool: / 11. Recreational Drug Use: Never Drug Type: Tobacco Use: Never Smoker Tobacco Type: Amount or Packs/day: How Many Years: Alcohol Use: No Frequency: Quant:
--- NOTE | 2018-12-19 08:33 | HPC ---
[facility] [address] [address] PAIN MANAGEMENT CONSULTATION Name: KAYODE KHAN Room #: REG [facility] Erickson#: [id number] Admission: 12/16/18 Attend Phys: Michelle Louise Discharge: Date of : 46 Report #: [id number] THIS REPORT FOR: //name// CC: Michelle Ewing Alexandra Brooks DATE OF SERVICE: 12/16/2018 CHIEF COMPLAINT: Chronic headaches. HISTORY OF PRESENT ILLNESS: This is a very pleasant 68-year-old female who returns to the pain clinic today for refill of her medications. She reports that she is doing quite well despite pain score of 8/10 with her ongoing migraine headaches. She also is being treated for fibromyalgia and rheumatoid arthritis. She reports that the Topamax medication that she is started on a few months ago. She has not been able to tolerate any more than 25 mg at bedtime, but she finds this is very beneficial helping her sleep better and relieve some of her pain. She has been able to go off her Halcion and not having nightmares any longer that were related to taking medications. So for that she is very happy. She also reports by just taking oxycodone up to 3 times a day. Her constipation has been lessened. So she has been finding less side effects with a change of her medications over the past few months. Today, she also needs refills of her migraine medicine, which she does continue to need on an as needed basis. ALLERGIES: COMPAZINE AND DURICEF. CURRENT LIST OF MEDICATIONS: Topamax 25 mg daily, Zofran p.r.n., Maxalt 10 mg p.r.n., oxycodone 10/325 up to 3 times a day, Frova p.r.n., Cymbalta 60 mg daily, Prempro daily, Robaxin 750 mg p.r.n. PQRS: 1. She has a history of osteoarthritis in her hands bilaterally as well as rheumatoid arthritis. 2. Height is 5 feet 2 inches, weight is 179, BMI is 32. 3. Vital signs 136/77, pulse is 100, oxygen sat is 98, respirations 18. 4. Pain score is 8/10. 5. Denies dizziness, does not need help walking or standing, has not fallen in the last 3 months. 6. The patient is not on any blood thinners or medicine for hypertension. 7. Opiate therapy is greater than 6 weeks; therefore, an opiate signed contract is on the chart. Her risk assessment tool is low. Functional assessment is 55/70. 8. Recreational drug use, she denies. She is not a smoker and does not drink alcohol. [address] [address] PAIN MANAGEMENT CONSULTATION Name: KAYODE KHAN Room #: REG [facility]#: [id number] Admission: 12/16/18 Attend Phys: Michelle Louise Discharge: Date of : 46 Report #: [id number] According to the prescription monitoring system, the patient is filling appropriately for her medications. There is a recent a drug screen on the chart as well that is appropriate for her medicines. PHYSICAL EXAMINATION: GENERAL: This is a well-developed, well-nourished white female who appears her stated age, placing her current pain score at 8/10 today. She is alert and orientated. HEENT: Normocephalic, atraumatic. Extraocular eye muscles are intact. She suffers from alopecia. She does have headaches in the occipital and temporal part of her head. None reported today. NECK: Without JVD or adenopathy. MUSCULOSKELETAL: She has arthritic nodules in her bilateral hands. She is being treated for. She has a normal gait. Her lower extremities and upper extremity strength judged to be 5/5 symmetrical and muscle mass and tone. IMPRESSION: 1. Chronic headaches including mixed disorder of migraines and tension headache. 2. Fibromyalgia. 3. Osteoarthritis. 4. Rheumatoid arthritis. 5. Management of opioids under written opioid agreement. We reviewed the fact that opiate medications are being used to provide analgesia adequate to support activities of daily living, not attempting to achieve a specific pain score on the 0-10 Visual Analog Scale. The current opiate medications are providing sufficient analgesia to allow the patient to participate in activities of daily living. The patient is not exhibiting any aberrant behavior suggestive of drug diversion. The patient is not having any adverse reactions to medications. The patient is not suffering from daytime somnolence or mental acuity changes. The patient is managing opiate-induced constipation with appropriate hjrm-vwo-lzdebso agents and dietary considerations. The patient was counseled on concern for caution with operating a motor vehicle while using opiate medications. A physical exam was performed and the patient's functional status was evaluated. All patients with back pain were advised against the bed rest greater than 4 days and were advised to return to normal activities. Pain score assessment was noted and the treatment plan was reviewed with the patient. All current medications, both prescribed and OTC were reviewed and reconciled on the electronic medical record. Tobacco screening was accomplished and smoking cessation was advised when indicated. BMI was noted and diet/exercise modification was recommended for all patients following outside normal parameters. [address] [address] PAIN MANAGEMENT CONSULTATION Name: KAYODE KHAN Room #: REG [facility]#: [id number] Admission: 12/16/18 Attend Phys: Michelle SORAIDA Dani Discharge: Date of : 46 Report #: [id number] I reviewed with the patient today their responsibilities to safeguard prescription medications, reviewed their responsibility to utilize medications only as prescribed by the physician. They are to seek and receive pain medications only from 1 physician group ( [facility]). They are to use 1 pharmacy and keep the clinic informed if they change pharmacies. Their responsibilities include making followup visits in a timely fashion and to avoid abrupt discontinuation of medication usage. Their responsibilities further include bringing their medications (bottles from the pharmacy with residual pills) to the visit for possible confirmation of pill counts and the patient understands it is their responsibility to submit to random drug screens to ensure both that the medications prescribed are present, and that no other controlled substances are present. All prescriptions provided today were generated electronically. PLAN: 1. We discussed treatment options with the patient today. The patient finds that Topamax 25 mg is very beneficial and has stopped her Halcion since starting this medication. No scripts needed today since she has plenty of this medicine since she was unable to titrate at a higher dose, the 25 mg has been very effective. 2. Oxycodone 10/325, #90 given for today and 4-week release. This places the patient at 45 morphine mEq per day according to the CDC guidelines. 3. Frova 2.5 mg #10 with one additional refill given and Maxalt 10 mg ODT #18 with one additional refill. The patient to take these on onset of headache and repeat if needed. 4. The patient is unsure if she needed Zofran refill today. She was instructed to call our office and we would refill this medicine if she needs it. 5. The patient is seen today in collaboration with Dr. Wesley Ewing who did see the patient as well. <ELECTRONICALLY SIGNED> By: Michelle Louise 12/19/18 0833 [id number] Michelle Louise /nt
== END ==
LOC: PAIN 06:51
DX: R51 Headache (principal); M79.7 Fibromyalgia; M06.9 Rheumatoid arthritis, unspecified; Z88.8 Allergy status to other drugs, medicaments and biological substances; M19.90 Unspecified osteoarthritis, unspecified site; Z79.891 Long term (current) use of opiate analgesic; Z79.899 Other long term (current) drug therapy

== ENCOUNTER → 2019-02-10 | Outpatient (CLI) | payer OTHER, BC ==
[~2019-02-10] VITALS: Ht 157.5 cm; Wt 81.6 kg
--- NOTE | ~2019-02-10 | HPC ---
[facility] [place] [address] [place] [address] PAIN MANAGEMENT CONSULTATION Name: KAYODE KHAN Room #: REG [facility]ae.#: [id number] Admission: 02/10/19 Attend Phys: Carlota Ewing MD Discharge: Date of : 46 Report #: [id number] THIS REPORT FOR: //name// CC: Carlota Brooks DATE OF SERVICE: 03/08/2019 CHIEF COMPLAINT: Headaches, medications continue to be helpful. HISTORY: The patient is a 68-year-old female who has been followed in the pain clinic because of chronic headaches. She has a mixed disorder. They include migraine headaches as well as tension headaches, fibromyalgia remains problematic. She has found that her current medical regimen has been helpful. She has had migraine and she has had headache problems since age 11. She rates her pain today as 8/10. The weather pattern has changed. This has affected her headaches. Notes that use of her medications, code and being in a dark environment can help with her pain. ALLERGIES: COMPAZINE, DURACEF. CURRENT MEDICATIONS: Topamax 25 mg daily, Zofran p.r.n., Maxalt 10 mg p.r.n., oxycodone 10/325 up to 3 tablets daily, Frova p.r.n., Cymbalta 60 mg daily, Prempro daily, Robaxin 750 mg p.r.n. PAIN CLINIC ASSESSMENT/PQRS: 1. The patient does have history of osteoarthritis in her hands bilaterally as well as rheumatoid arthritis. 2. Height 5 feet 2 inches, weight 180 pounds, BMI 32.9. 3. Vital Signs: Blood pressure 148/78, pulse 100, respiratory rate 16, room air saturation 99%. 4. Pain intensity 10/29. 5. Fall risk. The patient has not fallen in the last 3 months. 6. Blood thinner. The patient is not on a blood thinning medication. 7. Hypertension. The patient is not being treated for hypertension. 8. Opioids greater than 6 weeks. The patient received medication from one source, pain clinic. 9. Risk assessment tool, low for opioid use. 10. Functional assessment tool 55/70. 11. Recreational drug use: The patient denies. 12. Tobacco: The patient denies. 13. Alcohol: The patient denies. PHYSICAL EXAMINATION: GENERAL: The patient is a well-developed, well-nourished white female. Appears her stated age. She is alert and oriented x 3. Her affect is appropriate. [address] [address] PAIN MANAGEMENT CONSULTATION Name: KAYODE KHAN Room #: REG [facility]#: [id number] Admission: 02/10/19 Attend Phys: Carlota Ewing MD Discharge: Date of : 46 Report #: [id number] Speech is fluent. HEENT: Normocephalic, atraumatic. Extraocular eye muscles intact. Sclerae nonicteric. The patient has evidence of alopecia. Does have headaches in the occipital as well as the temporal area of her head. NECK: Without adenopathy or JVD. MUSCULOSKELETAL: The patient with arthritic nodules on her hands bilaterally. Gait is normal. Upper extremity muscle strength judged to be 5-/5 for the major muscle groups in the upper extremity. IMPRESSION: 1. Chronic headaches including mixed disorder, migraine and tension headaches. 2. Fibromyalgia. 3. Osteoarthritis. 4. Rheumatoid arthritis. 5. Management of chronic headache pain with opioid medications. RECOMMENDATIONS: We discussed treatment options with the patient. At this juncture, we will continue with her medications. She feels that they are helpful. Continues to have pain, which can be problematic depending on the weather situation. The weather has been fluctuating. This has had some impact upon her condition. She rates her pain as an 8/10. We have discussed the problems with opioid medications. Prolonged use of opioid medications can become problematic in that patients can experience of dependency. She does not show any signs of dependency. She has taken the medication as prescribed. At this juncture, we will continue with her medication. A script for renewal of her medications has been provided. She will call us if she has any problems with the medications. We would like to thank you for letting us for letting us participate in her care. Hopefully, her headache pain. We will continue to be well controlled. By: [id number] Carlota Ewing MD /ROXANN
[2019-02-10 11:03] VITALS: BP 148/73
--- NOTE | 2019-02-10 11:08 | NUR ---
Pain Clinic Assessment: 1. History of Osteoarthritis: HANDS History of Rheumatoid Arthritis: HANDS 2. Height: 5 ft. 2 in. 157.5 cm. Weight: 180.0 lb. oz. 81.648 kg. Patient's BMI: 32.9 3. Vital Signs: BP: 148/73 Pulse: 100 Resp: 16 Temp: 02 Sat: 99 ECG Mon: 4. Pain Intensity: 8 5. Fall Risk: Dizziness: N Needs help standing or walking: N Fallen in the last 3 months: N Fall risk comments: 6. Patient on Blood Thinner: None 7. History of Hypertension: N 8. Opioid Therapy greater than 6 weeks: Y Opiate Contract Signed: 11/18/15 9. Risk Assessment Tool Provided: LOW RISK 0 10. Functional Assessment Tool: / 11. Recreational Drug Use: Never Drug Type: Tobacco Use: Never Smoker Tobacco Type: Amount or Packs/day: How Many Years: Alcohol Use: No Frequency: Quant:
== END ==
LOC: PAIN 06:53
DX: R51 Headache (principal); M79.7 Fibromyalgia; M19.90 Unspecified osteoarthritis, unspecified site; M06.9 Rheumatoid arthritis, unspecified; Z79.891 Long term (current) use of opiate analgesic

== ENCOUNTER → 2019-04-13 | Outpatient (CLI) | payer OTHER, BC ==
[~2019-04-13] VITALS: Ht 157.5 cm; Wt 83.6 kg
[2019-04-13 12:33] VITALS: BP 153/71
--- NOTE | 2019-04-13 12:45 | NUR ---
Pain Clinic Assessment: 1. History of Osteoarthritis: HANDS History of Rheumatoid Arthritis: HANDS 2. Height: 5 ft. 2 in. 157.5 cm. Weight: 184.4 lb. oz. 83.643 kg. Patient's BMI: 33.7 3. Vital Signs: BP: 153/71 Pulse: 94 Resp: 16 Temp: 02 Sat: 98 ECG Mon: 4. Pain Intensity: 8 5. Fall Risk: Dizziness: N Needs help standing or walking: N Fallen in the last 3 months: N Fall risk comments: 6. Patient on Blood Thinner: None 7. History of Hypertension: N 8. Opioid Therapy greater than 6 weeks: Y Opiate Contract Signed: 11/18/15 9. Risk Assessment Tool Provided: LOW RISK 0 10. Functional Assessment Tool: / 11. Recreational Drug Use: Never Drug Type: Tobacco Use: Never Smoker Tobacco Type: Amount or Packs/day: How Many Years: Alcohol Use: No Frequency: Quant:
--- NOTE | 2019-04-17 08:38 | HPC ---
[facility] [place] [address] PAIN MANAGEMENT CONSULTATION Name: KAYODE KHAN Room #: REG [facility].#: [id number] Admission: 04/13/19 Attend Phys: Michelle Louise Discharge: Date of : 46 Report #: [id number] THIS REPORT FOR: //name// CC: Michelle Brooks MD DATE OF SERVICE: 04/13/2019 CHIEF COMPLAINT: Headaches. HISTORY OF PRESENT ILLNESS: This is a pleasant 69-year-old female who returns to the pain clinic today for refill of her medications for her headaches that had been diagnosed as a mixed disorder type. This includes migraine headaches as well as tension headaches that she also suffers from fibromyalgia. She has found that her current medication regimen of oxycodone, Topamax and either Maxalt or Frova have been very beneficial in helping control her headaches for several years. She recently has been able to decrease off of her OxyContin and now is only on a breakthrough pain medication. The patient reporting her pain an 8/10 today. She said that is higher than it has been due to the weather changes. She also reports the pharmacy had not allowed her to fill her Maxalt or Frova since she has been without that medication. Her pain does radiate from the back of her head upward towards her temporal area, is a sharp, aching, throbbing pain that is worse with weather changes, activity and lack of sleep, but again the medication regimen that she is on is very beneficial. She denies any problems with constipation or daytime sleepiness as a result of these medicines. ALLERGIES: COMPAZINE and DURICEF. CURRENT LIST OF MEDICATIONS: Maxalt 10 mg as needed, oxycodone 10/325 t.i.d. p.r.n., Zofran p.r.n., Frova 2.5 mg p.r.n., nortriptyline 25 mg at bedtime, duloxetine 60 mg daily, Prempro, methocarbamol and Topamax 25 mg at bedtime. PQRS: 1. The patient has a history of osteoarthritis in her hands bilaterally as well as rheumatoid arthritis. 2. Height is 5 feet 2 inches, weight is 184, BMI is 33. 3. Vital signs: BP 153/71, pulse is 94, respirations 16, oxygen sat is 98. 4. Pain score is 8/10. 5. Denies dizziness, does not need help walking or standing, has not fallen in the last 3 months. 6. The patient is not on any blood thinners or hypertension medicines. 7. Opioid therapy is greater than 6 weeks; therefore, an opioid signed contract [address] [address] PAIN MANAGEMENT CONSULTATION Name: KAYODE KHAN Room #: REG [facility] Erickson#: [id number] Admission: 04/13/19 Attend Phys: Michelle Louise Discharge: Date of : 46 Report #: [id number] is on the chart. Risk assessment tool is low. Functional assessment is 55/70. 8. Recreational drug use, she denies. She is not a smoker and does not drink alcohol. According to the prescription monitoring system, the patient is filling her opioid medications appropriately and is due to fill those today. Her morphine mEq per day is 45 MME according to the CDC guidelines. PHYSICAL EXAMINATION: GENERAL: This is a well-developed, well-nourished white female who appears her stated age. She is alert and orientated and her affect is appropriate. HEENT: Normocephalic, atraumatic. Extraocular eye muscles are intact. The patient has evidence of alopecia. She has headaches in the occipital area that radiates into the temporal area of her head. NECK: Without adenopathy or JVD. MUSCULOSKELETAL: The patient has arthritic nodules on her hands bilaterally. She walks with a normal gait. Her upper and lower extremity strength judged to be normal and symmetrical in strength at 5/5. IMPRESSION: 1. Chronic headaches including mixed disorder of migraines and tension headaches. 2. Fibromyalgia. 3. Osteoarthritis. 4. Rheumatoid arthritis. 5. Management of chronic headaches with opioid medications. We reviewed the fact that opiate medications are being used to provide analgesia adequate to support activities of daily living, not attempting to achieve a specific pain score on the 0-10 Visual Analog Scale. The current opiate medications are providing sufficient analgesia to allow the patient to participate in activities of daily living. The patient is not exhibiting any aberrant behavior suggestive of drug diversion. The patient is not having any adverse reactions to medications. The patient is not suffering from daytime somnolence or mental acuity changes. The patient is managing opiate-induced constipation with appropriate qvto-eep-zxuxbrd agents and dietary considerations. The patient was counseled on concern for caution with operating a motor vehicle while using opiate medications. PLAN: 1. We will refill the patient's medications as they are beneficial in controlling her mixed disorder of headaches, migraine and tension headaches. She finds that using Maxalt, Topamax, nortriptyline, oxycodone, and occasional Frova have been very beneficial in controlling her headaches for quite some years. She had tried Imitrex in the past, which was beneficial for a while, then after several years of use was ineffective. [address] [address] PAIN MANAGEMENT CONSULTATION Name: KAYODE KHAN [id number] Admission: 04/13/19 Attend Phys: Michelle Louise Discharge: Date of : 46 Report #: [id number] 2. We will refill her oxycodone 10/325, #90, today and 4 week 8 weeks. These will be sent electronically to the pharmacy by Dr. Arun Webb. 3. I will refill her Maxalt 10 mg, #18, with one additional refill take at onset of headache and may repeat x 1 if needed. 4. Topamax 25 mg at bedtime, #90, with 2 additional refills will be sent. 5. Frova 25 mg one at onset of headache, may repeat x 1, #10, with one additional refill sent. The patient is not needing her ondansetron today. The patient seen in collaboration with Dr. Arun Webb. The patient is instructed to call as needed for an appointment. <ELECTRONICALLY SIGNED> By: Michelle Louise 04/17/19 0838 [id number] Michelle Louise /nt
== END ==
LOC: PAIN 06:45
DX: R51 Headache (principal); M79.7 Fibromyalgia; M19.90 Unspecified osteoarthritis, unspecified site; M06.9 Rheumatoid arthritis, unspecified; Z79.891 Long term (current) use of opiate analgesic; Z79.899 Other long term (current) drug therapy; Z88.8 Allergy status to other drugs, medicaments and biological substances

== ENCOUNTER → 2019-07-07 | Outpatient (CLI) | payer OTHER, BC ==
[~2019-07-07] VITALS: Ht 157.5 cm; Wt 84.8 kg
[2019-07-07 10:13] VITALS: BP 137/82
--- NOTE | 2019-07-07 10:28 | NUR ---
Pain Clinic Assessment: 1. History of Osteoarthritis: HANDS History of Rheumatoid Arthritis: HANDS 2. Height: 5 ft. 2 in. 157.5 cm. Weight: 187.0 lb. oz. 84.823 kg. Patient's BMI: 34.2 3. Vital Signs: BP: 137/82 Pulse: 100 Resp: 18 Temp: 02 Sat: 98 ECG Mon: 4. Pain Intensity: 8 5. Fall Risk: Dizziness: N Needs help standing or walking: N Fallen in the last 3 months: N Fall risk comments: 6. Patient on Blood Thinner: None 7. History of Hypertension: N 8. Opioid Therapy greater than 6 weeks: Y Opiate Contract Signed: 11/18/15 9. Risk Assessment Tool Provided: LOW RISK 0 10. Functional Assessment Tool: / 11. Recreational Drug Use: Never Drug Type: Tobacco Use: Never Smoker Tobacco Type: Amount or Packs/day: How Many Years: Alcohol Use: No Frequency: Quant:
--- NOTE | 2019-07-19 08:03 | HPC ---
[facility] [place] [address] [address] [place] [address] PAIN MANAGEMENT CONSULTATION Name: KAYODE KHAN Room #: REG [facility] Rae.#: [id number] Admission: 07/07/19 Attend Phys: Carlota Ewing MD Discharge: Date of : 46 Report #: [id number] THIS REPORT FOR: cc: MANDEEP - Family physician unknown MANDEEP - Family physician unknown Carlota Ewing MD ~ CC: Dr. Alexandra KAUFMAN unknown Carlota Ewing DATE OF SERVICE: 07/07/2019 CHIEF COMPLAINT: Continued headaches, here for medication renewal. HISTORY: The patient is a 69-year-old female who has been followed in the pain clinic. She has a history of mixed headache disorder. She has migraine headaches. They also are punctuated with tension headaches. She has a history of fibromyalgia. Finds that her headaches continue to be problematic. She has had a series of headache problems since age 11. Rates her pain today as 8/10. Notes that things, which exacerbate her headache are change in weather. She notes it is more problematic when she has a lack of sleep. Not eating regularly can exacerbate her headaches as well. She has returned today with the hopes of having the medications renewed. She has taken the medication as prescribed. She is having no complications from their use. ALLERGIES: COMPAZINE, DURACEF. CURRENT MEDICATIONS: Topamax 25 mg, Zofran p.r.n., Maxalt 10 mg p.r.n., oxycodone 10/325 up to 3 tablets daily, Frova p.r.n., Cymbalta 60 mg daily, Prempro daily, Robaxin 750 mg. PAIN CLINIC ASSESSMENT AND PQRS: 1. The patient does have a history of osteoarthritis in her hands bilaterally. She is not being treated for rheumatoid arthritis. 2. Height 5 feet 2 inches, weight 187 pounds, BMI is 34.4. 3. Vital Signs: Blood pressure 137/82, pulse 100, respiratory rate 18, room air saturation is 98%. 4. Pain intensity, 10/29. 5. Fall history. The patient has not fallen in the last 3 months. 6. Blood thinner. The patient is not on a blood thinning medication. 7. Hypertension. The patient is not being treated for hypertension. 8. Opioids greater than 6 weeks. The patient receives medications from the pain clinic. 9. Risk assessment tool, low for opioid use. 10. Functional assessment tool, 55/70. 11. Now recreational drug use, the patient denies use of recreational drugs. [address] [address] PAIN MANAGEMENT CONSULTATION Name: KAYODE KHAN Room #: REG [facility].#: [id number] Admission: 07/07/19 Attend Phys: Carlota Ewing MD Discharge: Date of : 46 Report #: [id number] 12. Tobacco. The patient has never smoked. 13. Alcohol. The patient denies frequent use of alcoholic beverages. PHYSICAL EXAMINATION: GENERAL: The patient is a well-developed, well-nourished, white female. Appears her stated age. She is alert and oriented x 3. Her affect is appropriate. Speech is fluent. HEENT: Normocephalic, atraumatic. Extraocular eye muscles intact. The patient has evidence of alopecia. Does have headaches in the occipital areas as well as in the temporal areas of her head. NECK: Without adenopathy or JVD. MUSCULOSKELETAL: The patient with some arthritic nodules on her hands bilaterally. Gait is normal. Upper extremity muscle strength judged to be 5-/5 for the major muscle groups in the upper extremity. Lower extremity muscle strength is 5-/5. IMPRESSION: 1. Chronic headache pain including a mixed disorder of migraine and tension headaches. 2. Fibromyalgia. 3. Osteoarthritis. 4. Rheumatoid arthritis. 5. Management of chronic headache and pain with opioid medications. RECOMMENDATIONS: We discussed treatment options with the patient. At this juncture, she feels the medications are helpful. She is aware that opioid medications can become less effective over time because of development of dependency. She is aware that certain patients have developed addiction. She has not shown any signs of addiction. She feels that the medications continue to be helpful. She has returned with the hopes that she could continue with her oxycodone. A script for 10 mg 1 p.o. t.i.d. has been provided. The patient will also continue with the Frova 2.5 mg. A script for Maxalt 10 mg will be continued. The patient will call us if she has any concerns. We would like to thank you for letting us participate in her care. We hope she continues to improve. <ELECTRONICALLY SIGNED> By: Carlota Ewing MD 07/19/19 0803 [id number] Carlota Ewing MD /[facility]
== END ==
LOC: PAIN 10:00
DX: R51 Headache (principal); M19.90 Unspecified osteoarthritis, unspecified site; M06.9 Rheumatoid arthritis, unspecified; M79.7 Fibromyalgia; F11.20 Opioid dependence, uncomplicated; Z88.1 Allergy status to other antibiotic agents; Z88.8 Allergy status to other drugs, medicaments and biological substances; Z79.899 Other long term (current) drug therapy

== ENCOUNTER → 2019-09-29 | Outpatient (CLI) | payer OTHER, BC ==
[~2019-09-29] VITALS: Ht 157.5 cm; Wt 81.7 kg
[~2019-09-29] MED LIST changes: +TOPAMAX 25 MG T25 MG PO
[2019-09-29 09:49] VITALS: BP 136/88
--- NOTE | 2019-09-29 09:55 | NUR ---
Pain Clinic Assessment: 1. History of Osteoarthritis: HANDS History of Rheumatoid Arthritis: Not Applicable 2. Height: 5 ft. 2 in. 157.5 cm. Weight: 180.2 lb. oz. 81.738 kg. Patient's BMI: 33.0 3. Vital Signs: BP: 136/88 Pulse: 102 Resp: 16 Temp: 02 Sat: 99 ECG Mon: 4. Pain Intensity: 8 5. Fall Risk: Dizziness: N Needs help standing or walking: N Fallen in the last 3 months: Y Fall risk comments: spouse had knee surgery/as she was helping him into the house they both fell. 6. Patient on Blood Thinner: None 7. History of Hypertension: N 8. Opioid Therapy greater than 6 weeks: Y Opiate Contract Signed: 11/18/15 9. Risk Assessment Tool Provided: LOW RISK 0 10. Functional Assessment Tool: 55/70 11. Recreational Drug Use: Never Drug Type: Tobacco Use: Never Smoker Tobacco Type: Amount or Packs/day: How Many Years: Alcohol Use: No Frequency: Quant:
--- NOTE | 2019-10-02 08:27 | HPC ---
[facility] [address] [place] [address] PAIN MANAGEMENT CONSULTATION Name: KAYODE KHAN Room #: REG [facility] M..#: [id number] Admission: 09/29/19 Attend Phys: Michelle Louise Discharge: Date of : 46 Report #: [id number] THIS REPORT FOR: cc: FAM - Family physician unknown FAM - Family physician unknown Michelle Louise ~ CC: Brain Ewing MD DATE OF SERVICE: 09/29/2019 CHIEF COMPLAINT: Headaches. HISTORY OF PRESENT ILLNESS: This is a very pleasant 69-year-old female who returns to the pain clinic today for refill of her medications that she uses to treat in conjunction with her headaches. She continues to have tension headaches as well as migraine headaches. The temporal part of her head is most affected. She reports daily headaches rating her pain score at 8/10, which is elevated slightly today. She feels the weather has caused some increase in her headaches recently, also lack of sleep. She has been busy caring for her who had a knee replacement and she has not been sleeping as well. Overall, she feels the medication regimen is quite beneficial in controlling her pain and would like refills today. The patient also reports she had fallen in caring for her trying to get him up to go to the restroom. Her is significantly larger than her. She was using a neighbor to help assist him. They both fell, did not require any medical attention, but her did return to the hospital for further therapy. He is now several months into his rehabilitation and she is able to help care for him by herself plus he is walking on his own. ALLERGIES: COMPAZINE AND DURICEF. CURRENT LIST OF MEDICATIONS: Topamax 25 mg 3 at bedtime, Maxalt p.r.n., oxycodone 10/325 t.i.d., Zofran, Frova, nortriptyline 25 mg at bedtime, Cymbalta 60 mg, estrogen and Robaxin. PATIENT'S PQRS: 1. She has a history of osteoarthritis in her hands bilaterally. She is not being treated for rheumatoid arthritis. 2. Height is 5 feet 2 inches, weight is 180, BMI is 33. 3. Vital signs 136/88, pulse is 102, respirations 16, and oxygen sat is 99. 4. Pain score is 8/10. 5. Denies dizziness, does not need help walking or standing. She has fallen in the last 3 months when she was assisting her . No injury noted. 6. The patient is not on any blood thinners or medicine for hypertension. Her opioid therapy is greater than 6 weeks; therefore, [place] [address] PAIN MANAGEMENT CONSULTATION Name: KAYODE KHAN SCOOTER Room #: REG [facility]#: [id number] Admission: 09/29/19 Attend Phys: Michelle Louise Discharge: Date of : 46 Report #: [id number] on the chart. Risk assessment tool is low. Functional assessment is 55/70. 7. Recreational drug use, she denies. She is not a smoker and does not drink alcohol. According to the prescription monitoring system, the patient is due to fill her medications today. Her morphine milliequivalent is 45 MMEs according to their guidelines and we will collect a random drug screen on this patient today since it had been greater than one year. PHYSICAL EXAMINATION: GENERAL: This is a well-developed, well-nourished, well-hydrated white female who appears her stated age. She is alert and orientated, placing her current pain score at 8/10 today. HEENT: Normocephalic, atraumatic. Extraocular eye muscles are intact. She has alopecia. She has headaches in the occipital area as well as the temporal area, frontal area of her head today. She is wearing a mask. NECK: Without adenopathy or JVD. MUSCULOSKELETAL: She has arthritic changes in her hands. Her upper and lower extremity strength is symmetrical at 5/5. IMPRESSION: 1. Chronic headache pain including mixed disorder of migraines and tension headaches. 2. Fibromyalgia. 3. Osteoarthritis. 4. Rheumatoid arthritis. 5. Management of chronic headache pain with opioid medications as well as migraine medications. We reviewed the fact that opiate medications are being used to provide analgesia adequate to support activities of daily living, not attempting to achieve a specific pain score on the 0-10 Visual Analog Scale. The current opiate medications are providing sufficient analgesia to allow the patient to participate in activities of daily living. The patient is not exhibiting any aberrant behavior suggestive of drug diversion. The patient is not having any adverse reactions to medications. The patient is not suffering from daytime somnolence or mental acuity changes. The patient is managing opiate-induced constipation with appropriate vfao-xks-ametfxg agents and dietary considerations. The patient was counseled on concern for caution with operating a motor vehicle while using opiate medications. PLAN: 1. We discussed treatment options with the patient today. The patient finds the oxycodone very beneficial in helping resolve her headache pains as well as her Maxalt, Frova and nortriptyline. We will renew these medications today. Send them electronically to the pharmacy. Dr. Ewing will fill her oxycodone [facility] [address] [place] [address] PAIN MANAGEMENT CONSULTATION Name: KAYODE KHAN Room #: REG [facility] Kurtis.R.#: [id number] Admission: 09/29/19 Attend Phys: Michelle Louise Discharge: Date of : 46 Report #: [id number] 10/325, #90 to release today, 4-week and 8-week release. 2. We will send Frova and Maxalt for 2 months. 3. I will refill her Topamax 25 mg, #90 with 2 additional refills. This typically lasts the patient 6 months. 4. We will collect a random drug screen on this patient today. 5. The patient is seen in collaboration with Dr. Ewing. <ELECTRONICALLY SIGNED> By: Michelle Louise 10/02/19 0827 [id number] [id number] Michelle Louise /nt
== END ==
LOC: PAIN 06:43
PROVIDERS: ATTEND Clinical Nurse Specialist Adult Health
DX: M19.042 Primary osteoarthritis, left hand (principal); M19.041 Primary osteoarthritis, right hand; Z79.891 Long term (current) use of opiate analgesic

== ENCOUNTER → 2019-12-22 | Outpatient (CLI) | payer OTHER, BC ==
[~2019-12-22] VITALS: Ht 157.5 cm; Wt 85.1 kg
[~2019-12-22] MED LIST changes: +PERCOCET 10-321 EAC1 PO
[2019-12-22 09:23] VITALS: BP 146/75
--- NOTE | 2019-12-22 09:36 | NUR ---
Pain Clinic Assessment: 1. History of Osteoarthritis: HANDS History of Rheumatoid Arthritis: Not Applicable 2. Height: 5 ft. 2 in. 157.5 cm. Weight: 187.6 lb. oz. 85.095 kg. Patient's BMI: 34.3 3. Vital Signs: BP: 146/75 Pulse: 101 Resp: 18 Temp: 02 Sat: 100 ECG Mon: 4. Pain Intensity: 8 5. Fall Risk: Dizziness: N Needs help standing or walking: N Fallen in the last 3 months: N Fall risk comments: spouse had knee surgery/as she was helping him into the house they both fell. 6. Patient on Blood Thinner: None 7. History of Hypertension: N 8. Opioid Therapy greater than 6 weeks: Y Opiate Contract Signed: 11/18/15 9. Risk Assessment Tool Provided: LOW RISK 0 10. Functional Assessment Tool: 43/ 11. Recreational Drug Use: Never Drug Type: Tobacco Use: Never Smoker Tobacco Type: Amount or Packs/day: How Many Years: Alcohol Use: No Frequency: Quant:
--- NOTE | 2019-12-25 07:31 | HPC ---
[facility] [address] [address] PAIN MANAGEMENT CONSULTATION Name: KAYODE KHAN Room #: REG [facility] M..#: [id number] Admission: 12/22/19 Attend Phys: Michelle Louise Discharge: Date of : 46 Report #: [id number] CC: Michelle Greco DATE OF SERVICE: 12/22/2019 CHIEF COMPLAINT: Migraine headaches. HISTORY OF PRESENT ILLNESS: This is a very pleasant 69-year-old female who returns to the pain clinic today for refill of her medications that she uses to help treat her ongoing mixed disorder of migraines and tension headaches. She reports that her pain is very well controlled currently, though despite a higher number of 8/10 today due to the weather changes and has increased her headache today. Most often, she feels that the medications are working appropriately. She feels that she is having significantly less constipation since she has switched to oxycodone from the OxyContin. Her pain is aching, sharp, throbbing discomfort, worse with lack of sleep, not eating properly and of course the weather changes. She also complains today of right hand pain from a fall in September. She has had some ongoing issues and does have arthritic changes there. She denies any daytime somnolence. ALLERGIES: COMPAZINE AND DURICEF. CURRENT LIST OF MEDICATIONS: Oxycodone 10/325, Maxalt, Zofran, Frova, Topamax, nortriptyline, Cymbalta, Prempro and Robaxin. PQRS: 1. She has a history of osteoarthritic changes in her hands. Denies any rheumatoid arthritis. 2. Height is 5 feet 2 inches, weight is 187, BMI is 34. Vital signs 146/75, pulse is 101, respirations 18, oxygen sat is 100, pain score is 8/10. 3. Fall risk. Denies dizziness, does not need help walking or standing, has not fallen in the last 3 months. The patient is not on any blood thinners or medicine for hypertension. Her opioid therapy is greater than 6 weeks; therefore, an opioid signed contract is on the chart. Risk assessment tool is low. Functional assessment is 43/70. 4. Recreational drug use, she denies. She is not a smoker and does not drink alcohol. According to the prescription monitoring system, the patient is filling appropriately in a timely fashion. She is due to fill her medicines next week. There is a recent drug screen on her chart that is appropriate as well. PHYSICAL EXAMINATION: GENERAL: This is a well-developed, well-nourished, well-hydrated 69-year-old female who appears her stated age, placing her current pain score at an 8/10 today. HEENT: Normocephalic, atraumatic. Extraocular eye muscles are intact. Mucous membranes are moist. She is wearing a mask. She has some alopecia that is present and headaches are in her occipital area and occasionally in her temporal area as well. NECK: Without adenopathy or JVD. MUSCULOSKELETAL: She has arthritic changes in her hands bilaterally, worse on the right with slight edema present today. Her upper extremity strength judged to be symmetrical at 5/5. IMPRESSION: 1. Chronic headache pain including mixed disorder of migraines and tension headaches. 2. Fibromyalgia. 3. Osteoarthritis. 4. Rheumatoid arthritis. 5. Management of chronic headache pain with opioid medications. We reviewed the fact that opiate medications are being used to provide analgesia adequate to support activities of daily living, not attempting to achieve a specific pain score on the 0-10 Visual Analog Scale. The current opiate medications are providing sufficient analgesia to allow the patient to participate in activities of daily living. The patient is not exhibiting any aberrant behavior suggestive of drug diversion. The patient is not having any adverse reactions to medications. The patient is not suffering from daytime somnolence or mental acuity changes. The patient is managing opiate-induced constipation with appropriate nqzx-smp-fwlvyhx agents and dietary considerations. The patient was counseled on concern for caution with operating a motor vehicle while using opiate medications. PLAN: 1. We discussed treatment options with the patient today. The patient finds her regimen of medication very beneficial in controlling most of her headaches despite her high level of pain today. We will have Dr. Wesley Ewing send her oxycodone 10/325, #90, for today for an 8-week supply. We will also send her Maxalt, Frova and Zofran with 1 refill and continue her on her Topamax 25 mg 3 tablets at night, #90 with 2 additional refills. 2. We did discuss the patient utilizing some Voltaren gel to her arthritic hands. It is [id number]-ocp-dvnqcgm using a several times a day, may help some of this discomfort. 3. The patient is seen in collaboration with Dr. Wesley Ewing. <ELECTRONICALLY SIGNED> By: Michelle Louise 12/25/19 0731 [id number] [id number] Michelle Louise /otto
== END ==
LOC: PAIN 06:56
PROVIDERS: ATTEND Clinical Nurse Specialist Adult Health
DX: G43.909 Migraine, unspecified, not intractable, without status migrainosus (principal); M79.7 Fibromyalgia; M19.90 Unspecified osteoarthritis, unspecified site; F11.20 Opioid dependence, uncomplicated; Z79.899 Other long term (current) drug therapy

== ENCOUNTER → 2020-03-20 | Outpatient (CLI) | payer OTHER, BC ==
[~2020-03-20] VITALS: Ht 157.5 cm; Wt 86.1 kg
[~2020-03-20] MED LIST changes: +MAXALT MLT ODT10 M2 PO; +ONDANSETRON ODT4 MG PO
--- NOTE | ~2020-03-20 | HPC ---
[facility] [address] [address] PAIN MANAGEMENT CONSULTATION Name: KAYODE KHAN Room #: REG [facility]..#: [id number] Admission: 03/20/20 Attend Phys: Michelle Louise Discharge: Date of : 46 Report #: [id number] THIS REPORT FOR: cc: Galen Greco MD, Marjon MD Hocker,Michelle QUIGLEY ~ DATE OF SERVICE: 03/20/2020 CHIEF COMPLAINT: Chronic migraines. HISTORY OF PRESENT ILLNESS: This is a pleasant 70-year-old female who returns to the pain clinic today for refill of her medications. Today, she is reporting increased pain at a 9/10. She has had multiple migraines recently due to stress. Her had fallen and broke his hip and is in a rehab facility. The patient reports she has not been sleeping well since she is not at home. Also, she is worried about him edwin COVID while he is staying in a facility. They do have several cases there and she is very concerned. She is trying to get him discharged to bring him home this week. The patient again reports her pain today at 9/10, located in the frontal portion of her head. It is an aching, throbbing pain. The weather changes do affect her as well as lack of sleep and her stress. The patient does report that before he fell, she was doing quite well with her current pain regimen. Today, she is needing refills of all of her medications that we prescribed. ALLERGIES: COMPAZINE AND DURICEF. CURRENT LIST OF MEDICATIONS: Topamax 75 mg at bedtime, Maxalt p.r.n., oxycodone 10/325 t.i.d., Zofran p.r.n., Frova p.r.n., nortriptyline 25 mg at bedtime, Cymbalta, estrogen and Robaxin. PQRS: 1. She has a history of arthritic changes in her hands. Denies any rheumatoid arthritis. 2. Height is 5 feet 2 inches, weight is 189, BMI is 34. Vital signs; BP 143/73, pulse is 98, respirations 16, oxygen sat is 98%. 3. Pain score is 9/10. 4. The patient denies dizziness that she does not need assistance with walking, has not fallen in the last 3 months. The patient is not on any blood thinners or medications for hypertension. Opioid therapy is greater than 6 weeks; therefore, an opioid signed contract is on the chart. Risk assessment is low. Functional assessment is 43/70. 5. Recreational drug use, she denies. She is not a smoker and does not drink alcohol. PHYSICAL EXAMINATION: GENERAL: This is a 70-year-old well-developed, well-nourished, [place] [address] PAIN MANAGEMENT CONSULTATION Name: KAYODE KHAN Room #: REG [facility].#: [id number] Admission: 03/20/20 Attend Phys: Michelle Louise Discharge: Date of : 46 Report #: [id number] female, who is reporting a pain score of 8/10 today. HEENT: Normocephalic, atraumatic. Extraocular eye muscles are intact. She has fluent speech and wearing a mask. Alopecia is present. She has headaches in the occipital area as well as the temporal area of her head today with photosensitivity. NECK: Without adenopathy or JVD. MUSCULOSKELETAL: She has arthritic changes in her bilateral hands, greater on the right. Her upper extremity strength is symmetrical at 5/5. She has a normal gait. IMPRESSION: 1. Chronic headaches including mixed disorder of migraines and tension headaches. 2. Fibromyalgia. 3. Osteoarthritis. 4. Rheumatoid arthritis. 5. Management of opioid medications under terms of written agreement. We reviewed the fact that opiate medications are being used to provide analgesia adequate to support activities of daily living, not attempting to achieve a specific pain score on the 0-10 Visual Analog Scale. The current opiate medications are providing sufficient analgesia to allow the patient to participate in activities of daily living. The patient is not exhibiting any aberrant behavior suggestive of drug diversion. The patient is not having any adverse reactions to medications. The patient is not suffering from daytime somnolence or mental acuity changes. The patient is managing opiate-induced constipation with appropriate iurb-txb-sczjixh agents and dietary considerations. The patient was counseled on concern for caution with operating a motor vehicle while using opiate medications. A physical exam was performed and the patient's functional status was evaluated. All patients with back pain were advised against the bed rest greater than 4 days and were advised to return to normal activities. Pain score assessment was noted and the treatment plan was reviewed with the patient. All current medications, both prescribed and OTC were reviewed and reconciled on the electronic medical record. Tobacco screening was accomplished and smoking cessation was advised when indicated. BMI was noted and diet/exercise modification was recommended for all patients following outside normal parameters. I reviewed with the patient today their responsibilities to safeguard prescription medications, reviewed their responsibility to utilize medications only as prescribed by the physician. They are to seek and receive pain medications only from 1 physician group ( [facility]). They are to use 1 pharmacy and keep the clinic informed if they change pharmacies. Their responsibilities include making followup visits in a timely fashion and to avoid [facility] [address] [place] [address] PAIN MANAGEMENT CONSULTATION Name: KAYODE KHAN Room #: REG [facility]..#: [id number] Admission: 03/20/20 Attend Phys: Michelle SORAIDA Chisholmmeng Discharge: Date of : 46 Report #: [id number] abrupt discontinuation of medication usage. Their responsibilities further include bringing their medications (bottles from the pharmacy with residual pills) to the visit for possible confirmation of pill counts and the patient understands it is their responsibility to submit to random drug screens to ensure both that the medications prescribed are present, and that no other controlled substances are present. All prescriptions provided today were generated electronically. PLAN: 1. We discussed treatment options with the patient today. The patient reports she is having more headaches due to stress. Her being in a rehab facility and being home alone, she is requesting refills of her migraine medications as well as her opioid medications. Scripts will be sent electronically today for her oxycodone 10/325, #90 for a total of 3 months. This is 45 morphine mEq according to the CDC guidelines. 2. We will continue her on her Maxalt, Frova and Zofran as well for her migraines, sending these electronically and Topamax 75 mg, #90 with 2 refills. 3. The patient will return in 3 months. At that time, we will collect a random drug screen on the patient. The patient is seen today in collaboration with Dr. Ewing. By: [id number] Michelle Louise /otto
[2020-03-20 11:21] VITALS: BP 143/73
--- NOTE | 2020-03-20 11:30 | NUR ---
Pain Clinic Assessment: 1. History of Osteoarthritis: HANDS History of Rheumatoid Arthritis: Not Applicable 2. Height: 5 ft. 2 in. 157.5 cm. Weight: 189.8 lb. oz. 86.093 kg. Patient's BMI: 34.7 3. Vital Signs: BP: 143/73 Pulse: 98 Resp: 16 Temp: 02 Sat: 98 ECG Mon: 4. Pain Intensity: 9 5. Fall Risk: Dizziness: N Needs help standing or walking: N Fallen in the last 3 months: N Fall risk comments: spouse had knee surgery/as she was helping him into the house they both fell. 6. Patient on Blood Thinner: None 7. History of Hypertension: N 8. Opioid Therapy greater than 6 weeks: Y Opiate Contract Signed: 11/18/15 9. Risk Assessment Tool Provided: LOW RISK 0 10. Functional Assessment Tool: 43/ 11. Recreational Drug Use: Never Drug Type: Tobacco Use: Never Smoker Tobacco Type: Amount or Packs/day: How Many Years: Alcohol Use: No Frequency: Quant:
== END ==
LOC: PAIN 06:44
PROVIDERS: ATTEND Clinical Nurse Specialist Adult Health
DX: G43.909 Migraine, unspecified, not intractable, without status migrainosus (principal); G89.29 Other chronic pain; M19.90 Unspecified osteoarthritis, unspecified site; M06.9 Rheumatoid arthritis, unspecified; Z79.891 Long term (current) use of opiate analgesic

== ENCOUNTER → 2020-06-14 | Outpatient (CLI) | payer OTHER, BC ==
[~2020-06-14] VITALS: Ht 157.5 cm; Wt 84.8 kg
[2020-06-14 09:39] VITALS: BP 121/65
--- NOTE | 2020-06-14 09:45 | NUR ---
Pain Clinic Assessment: 1. History of Osteoarthritis: HANDS History of Rheumatoid Arthritis: Not Applicable 2. Height: 5 ft. 2 in. 157.5 cm. Weight: 187.0 lb. oz. 84.823 kg. Patient's BMI: 34.2 3. Vital Signs: BP: 121/65 Pulse: 109 Resp: 18 Temp: 02 Sat: 97 ECG Mon: 4. Pain Intensity: 9 5. Fall Risk: Dizziness: N Needs help standing or walking: N Fallen in the last 3 months: N Fall risk comments: spouse had knee surgery/as she was helping him into the house they both fell. 6. Patient on Blood Thinner: None 7. History of Hypertension: N 8. Opioid Therapy greater than 6 weeks: Y Opiate Contract Signed: 11/18/15 9. Risk Assessment Tool Provided: LOW RISK 0 10. Functional Assessment Tool: 43/ 11. Recreational Drug Use: Never Drug Type: Tobacco Use: Never Smoker Tobacco Type: Amount or Packs/day: How Many Years: Alcohol Use: No Frequency: Quant:
--- NOTE | 2020-06-17 12:52 | HPC ---
[facility] [address] [place] [address] PAIN MANAGEMENT CONSULTATION Name: KAYODE KHAN Room #: REG [facility].#: [id number] Admission: 06/14/20 Attend Phys: Michelle Louise Discharge: Date of : 46 Report #: [id number] THIS REPORT FOR: cc: Galen Greco MD, Marjon MD Hocker,Michelle QUIGLEY ~ DATE OF SERVICE: 06/14/2020 CHIEF COMPLAINT: Chronic mixed disorder headache. HISTORY OF PRESENT ILLNESS: This is a 70-year-old female who is well known to the pain clinic returning today for a renewal of her medications. Today, the patient is slightly down. She reports she is having daily headaches that have been worse with this weather changes. She reports springtime is usually her most problematic time of the year. She is rating her pain today at 9/10, stating her entire head hurts. It is a throbbing, aching, sharp discomfort. Again, her pain is worse with weather changes, but also stress. Her has had multiple surgeries recently and is again looking at another knee replacement soon. She has been helping care for him at home and that has been very stressful and she has not been sleeping as well related to that issue. She is wondering if she may have a slight increase in her pain medicines today. The patient reports that she is going to have a COVID vaccine this afternoon, which she is thankful for. Her has been fully vaccinated already. ALLERGIES: COMPAZINE AND DURICEF. CURRENT LIST OF MEDICATIONS: Zofran, Maxalt, Frova, Topamax 50 mg at bedtime, oxycodone 10/325 t.i.d., Cymbalta, Prempro and Robaxin. PQRS: 1. She has osteoarthritic changes in her hands. Denies any rheumatoid arthritis. 2. Height is 5 feet 2 inches, weight is 187, BMI is 34. 3. Vital signs 121/65, pulse is 109, respirations 18, oxygen sat is 97%. 4. Pain score is 9/10. 5. Denies dizziness, does not need help walking or standing, has not fallen in the last 3 months. 6. The patient is not on any blood thinners or medications for hypertension. Her opioid therapy is greater than 6 weeks; therefore, an opioid signed contract is on the chart. Risk assessment is low. Functional assessment is 43/70. 7. Recreational drug use, she denies. She is not a smoker and does not drink alcohol. According to the prescription monitoring system, she is due to fill her medications on Wednesday. Her morphine mEq at her current dosage is 45 MMEs per [facility] [address] [place] [address] PAIN MANAGEMENT CONSULTATION Name: KAYODE KHAN Room #: REG [facility]#: [id number] Admission: 06/14/20 Attend Phys: Michelle Louise Discharge: Date of : 46 Report #: [id number] day. There is a drug screen on the chart that is appropriate for her medications. PHYSICAL EXAMINATION: GENERAL: This is alert and orientated, slightly depressed 70-year-old female who is rating her pain score today at 9/10. HEENT: Normocephalic, atraumatic. Extraocular eye muscles are intact. She is wearing a mask. She has alopecia present, headaches in her occipital as well as temporal area today. NECK: Without adenopathy or JVD. MUSCULOSKELETAL: She has arthritic changes in her hands bilaterally. Upper extremity strength is symmetrical. She has a normal gait. IMPRESSION: 1. Chronic headache including mixed disorder of migraines and tension headaches. 2. Fibromyalgia. 3. Osteoarthritis. 4. Complicated medication management under opioid medications. We reviewed the fact that opiate medications are being used to provide analgesia adequate to support activities of daily living, not attempting to achieve a specific pain score on the 0-10 Visual Analog Scale. The current opiate medications are providing sufficient analgesia to allow the patient to participate in activities of daily living. The patient is not exhibiting any aberrant behavior suggestive of drug diversion. The patient is not having any adverse reactions to medications. The patient is not suffering from daytime somnolence or mental acuity changes. The patient is managing opiate-induced constipation with appropriate ocyk-fig-gqlxlzg agents and dietary considerations. The patient was counseled on concern for caution with operating a motor vehicle while using opiate medications. PLAN: 1. We discussed treatment options with the patient today due to the patient's increasing headaches that have not been controlled with her Frova, Maxalt medications. We will increase her opioid, oxycodone 10/325 to 4 times a day for the next 3 months, then I instructed her that we will return back to her normal dosing of 90 pills per month. The patient is thankful for this increase during this difficult time that she is experiencing. I did encourage the lowest most effective dose if she is able to get with 3 a day to continue that as she is able. Scripts will be sent by Dr. Wesley Ewing to be released today in 4 weeks and in 8 weeks. 2. I will continue her on her Maxalt 10 mg allowing her 18 with 1 refill, the 3-month supply for the onset of migraine headache as well as Frova 2.5 mg, #10 with one additional refill and refilling her Zofran as well as needed for nausea. [facility] [address] [place] [address] PAIN MANAGEMENT CONSULTATION Name: KAYODE KHAN Room #: REG [facility].#: [id number] Admission: 06/14/20 Attend Phys: Michelle Louise Discharge: Date of : 46 Report #: [id number] 3. We did discuss her Topamax. The patient has been taking 50 mg at night. We have written for 75 mg tablets. I encouraged her to increase this to 75 every night to see if that is beneficial in helping her sleep and control some of her migraine headaches. The patient is worried she will be too sleepy to address her 's needs, but she will trial this medication at 3 tablets again. Time spent with the patient in consultation, reviewing recent studies, clinical nurse and physician reports, physical examination in correlation with findings to determine possible treatments 16 minutes. Time spent in preparation for appointment, reviewing prescription monitoring system, reviewing previous records and proposed treatment options, reviewing current medications 5 minutes. Time spent with preparing and sending electronic prescriptions with collaborating physician, Dr. Minh Ewing, and documentation of visit and plan of treatment 7 minutes. Total time spent 28 minutes. <ELECTRONICALLY SIGNED> By: Michelle Louise 06/17/20 1252 1027 1142 Michelle Louise /otto
== END ==
LOC: PAIN 07:01
PROVIDERS: ATTEND Clinical Nurse Specialist Adult Health
DX: G43.909 Migraine, unspecified, not intractable, without status migrainosus (principal); G89.29 Other chronic pain; M79.7 Fibromyalgia; M19.90 Unspecified osteoarthritis, unspecified site; Z79.891 Long term (current) use of opiate analgesic; Z79.899 Other long term (current) drug therapy

== ENCOUNTER → 2020-09-11 | Outpatient (CLI) | payer OTHER, BC ==
[~2020-09-11] VITALS: Ht 157.5 cm; Wt 82.6 kg
[2020-09-11 08:45] VITALS: BP 127/72
--- NOTE | 2020-09-11 08:52 | NUR ---
Pain Clinic Assessment: 1. History of Osteoarthritis: HANDS History of Rheumatoid Arthritis: Not Applicable 2. Height: 5 ft. 2 in. 157.5 cm. Weight: 182.2 lb. oz. 82.645 kg. Patient's BMI: 33.3 3. Vital Signs: BP: 127/72 Pulse: 86 Resp: 16 Temp: 02 Sat: 100 ECG Mon: 4. Pain Intensity: 8 5. Fall Risk: Dizziness: N Needs help standing or walking: N Fallen in the last 3 months: N Fall risk comments: spouse had knee surgery/as she was helping him into the house they both fell. 6. Patient on Blood Thinner: None 7. History of Hypertension: N 8. Opioid Therapy greater than 6 weeks: Y Opiate Contract Signed: 11/18/15 9. Risk Assessment Tool Provided: LOW RISK 0 10. Functional Assessment Tool: 43/ 11. Recreational Drug Use: Never Drug Type: Tobacco Use: Never Smoker Tobacco Type: Amount or Packs/day: How Many Years: Alcohol Use: No Frequency: Quant:
--- NOTE | 2020-09-12 08:26 | HPC ---
[facility] [address] [address] PAIN MANAGEMENT CONSULTATION Name: KAYODE KHAN Room #: REG [facility] M..#: [id number] Admission: 09/11/20 Attend Phys: Michelle Louise Discharge: Date of : 46 Report #: [id number] THIS REPORT FOR: cc: Galen Greco MD,Galen Louise,Michelle QUIGLEY ~ DOC #: [id number] cc: Galen Greco MD, MD Michelle Paez, [employer] DATE OF SERVICE: 09/11/2020 CHIEF COMPLAINT: Chronic mixed disorder, headaches. HISTORY OF PRESENT ILLNESS: This is a pleasant 70-year-old female who returns today for renewal of her medications. Today, she reports her pain score still quite high at 8/10. She does report that her migraines have been slightly better since the weather has settled down, but she continues to experiencing higher pain scores. She states she is not sleeping well at night. She has significant amount of stress at home. Her has been in rehab currently due to his second knee replacement, but he is on several medications that he is not acting like he used to. The patient is quite worried that he is being overmedicated. This is causing significant stress to her. She reports having to do more at home because he is not able to help out the way he has in the past. Today, the patient describes her headache as a sharp, throbbing sensation mostly in her temporal areas, but does also experience occipital headaches. Her pain is worse with any activity and stress as well as lack of sleep and weather changes. Overall, she believes her medications have been helpful, especially the slight increase in her oxycodone that we provided her at her last visit as well as rest and cold. ALLERGIES: COMPAZINE AND DURICEF. CURRENT LIST OF MEDICATIONS: Zofran, Maxalt, Frova, oxycodone 10/325 p.r.n., Topamax, nortriptyline, Cymbalta, Prempro and Robaxin. PQRS: 1. The patient has osteoarthritic changes in her hands. Denies any rheumatoid arthritis. 2. Height is 5 feet 2 inches, weight is 182. BMI is 33. 3. Vital signs 127/72, pulse is 86, respirations 16, oxygen sat is 100. 4. Pain score is 8/10. 5. Denies dizziness, does not need help walking or standing, has not fallen in the last 3 months. 6. The patient is not on any blood thinners or medication for hypertension. [address] [address] PAIN MANAGEMENT CONSULTATION Name: KAYODE KHAN Room #: REG [facility].#: [id number] Admission: 09/11/20 Attend Phys: Michelle Louise Discharge: Date of : 46 Report #: [id number] 7. Opioid therapy is greater than six weeks; therefore, an opioid signed contract is on the chart. 8. Risk assessment: Low. 9. Functional assessment: . 10. Recreational drug use, she denies. She is not a smoker and does not drink alcohol. According to the prescription monitoring system, the patient is due to fill her medications this week filling them in a timely fashion. Her morphine milliequivalent is 60 MMEs. We will collect a random drug screen on this patient at her next visit. PHYSICAL EXAMINATION: GENERAL: This is alert and orientated 70-year-old female who appears her stated age, rating her pain score at 8/10 today. She is a good historian. HEENT: Normocephalic, atraumatic. Extraocular eye muscles are intact. She is wearing a mask. She has alopecia present, headaches in her occipital and temporal area with a slight photosensitivity. NECK: Without adenopathy or JVD. MUSCULOSKELETAL: Arthritic changes in her hands bilaterally. She has a normal gait. Upper and lower extremity strength are symmetrical at 5/5. IMPRESSION: 1. Chronic headache including mixed order of migraine and tension headaches. 2. Fibromyalgia. 3. Osteoarthritis. 4. Complicated medical management utilizing scheduled opioid medications. PLAN: 1. We discussed treatment options with the patient today. At her last visit, we encouraged her to try to increase her Topamax to 75 mg nightly to see if this aids in her sleep and also helps reduce some of her headaches. The patient has not increased this and continued at 50 mg for the last 3 months. The patient will increase this dose today and see if that is beneficial in helping reduce some of her headache she is experiencing. New scripts will also be sent for renewals of her Topamax 25 mg #90 with 5 additional refills for a total of 6 months. 2. The patient states she has been having problems sleeping. She is not sure if it was related to stress. She does take nortriptyline from her primary care doctor who she will see next week to discuss this. 3. We will continue her on her Frova, Maxalt and Zofran that she takes as needed for severe migraines. These will be sent electronically by Dr. Ewing. 4. We will continue her on her oxycodone 10/325 #120 for the next three months, then taper her back to 90 pills. Hopefully, some of her stress and her Topamax will have started working to decrease her overall headaches and pain she is experiencing. [facility] [address] [place] [address] PAIN MANAGEMENT CONSULTATION Name: KAYODE KHAN Room #: REG [facility] M..#: [id number] Admission: 09/11/20 Attend Phys: Michelle Louise Discharge: Date of : 46 Report #: [id number] Time spent with the patient in consultation, reviewing recent studies and clinical notes and physician reports, physical examination and correlation of findings to determine possible treatments is 15 minutes. Time spent in preparation for appointment reviewing prescription monitoring system, reviewing previous records and proposed treatment options, reviewing current medications is 5 minutes. Time spent preparing and sending electronic prescriptions with collaborating physician, Dr. Brain Ewing and documentation of visit and plan of treatment is 5 minutes. Total time spent 25 minutes. ESTEFANY Dsouza/OLIVER <ELECTRONICALLY SIGNED> By: Michelle Louise 09/12/20 0826 0845 Michelle Louise /otto
== END ==
LOC: PAIN 06:48
PROVIDERS: ATTEND Clinical Nurse Specialist Adult Health
DX: G43.909 Migraine, unspecified, not intractable, without status migrainosus (principal); G44.229 Chronic tension-type headache, not intractable; M79.7 Fibromyalgia; M19.90 Unspecified osteoarthritis, unspecified site; Z79.891 Long term (current) use of opiate analgesic; Z79.899 Other long term (current) drug therapy

== ENCOUNTER → 2020-12-06 | Outpatient (CLI) | payer OTHER, BC ==
[~2020-12-06] VITALS: Ht 157.5 cm; Wt 82.7 kg
[2020-12-06 10:32] VITALS: BP 124/57
--- NOTE | 2020-12-06 10:40 | NUR ---
Pain Clinic Assessment: 1. History of Osteoarthritis: HANDS History of Rheumatoid Arthritis: Not Applicable 2. Height: 5 ft. 2 in. 157.5 cm. Weight: 182.4 lb. oz. 82.736 kg. Patient's BMI: 33.4 3. Vital Signs: BP: 124/57 Pulse: 89 Resp: 16 Temp: 02 Sat: 98 ECG Mon: 4. Pain Intensity: 8 5. Fall Risk: Dizziness: N Needs help standing or walking: N Fallen in the last 3 months: N Fall risk comments: spouse had knee surgery/as she was helping him into the house they both fell. 6. Patient on Blood Thinner: None 7. History of Hypertension: N 8. Opioid Therapy greater than 6 weeks: Y Opiate Contract Signed: 11/18/15 9. Risk Assessment Tool Provided: LOW RISK 0 10. Functional Assessment Tool: 43/ 11. Recreational Drug Use: Never Drug Type: Tobacco Use: Never Smoker Tobacco Type: Amount or Packs/day: How Many Years: Alcohol Use: No Frequency: Quant:
== END ==
LOC: PAIN 07:08
PROVIDERS: ATTEND Clinical Nurse Specialist Adult Health
DX: R51.9 Headache, unspecified (principal); G89.29 Other chronic pain; M79.7 Fibromyalgia; M19.90 Unspecified osteoarthritis, unspecified site; Z79.891 Long term (current) use of opiate analgesic; Z79.899 Other long term (current) drug therapy

== ENCOUNTER → 2021-02-28 | Outpatient (CLI) | payer OTHER, BC ==
[~2021-02-28] VITALS: Ht 157.5 cm; Wt 82.8 kg
[2021-02-28 11:37] VITALS: BP 138/67
--- NOTE | 2021-02-28 11:43 | NUR ---
Pain Clinic Assessment: 1. History of Osteoarthritis: HANDS History of Rheumatoid Arthritis: Not Applicable 2. Height: 5 ft. 2 in. 157.5 cm. Weight: 182.6 lb. oz. 82.827 kg. Patient's BMI: 33.4 3. Vital Signs: BP: 138/67 Pulse: 89 Resp: 20 Temp: 02 Sat: 100 ECG Mon: 4. Pain Intensity: 8 5. Fall Risk: Dizziness: N Needs help standing or walking: N Fallen in the last 3 months: N Fall risk comments: spouse had knee surgery/as she was helping him into the house they both fell. 6. Patient on Blood Thinner: None 7. History of Hypertension: N 8. Opioid Therapy greater than 6 weeks: Y Opiate Contract Signed: 11/18/15 9. Risk Assessment Tool Provided: LOW RISK 0 10. Functional Assessment Tool: 43/ 11. Recreational Drug Use: Never Drug Type: Tobacco Use: Never Smoker Tobacco Type: Amount or Packs/day: How Many Years: Alcohol Use: No Frequency: Quant:
== END ==
LOC: PAIN 07:36
PROVIDERS: ATTEND Anesthesiology Pain Medicine
DX: M79.7 Fibromyalgia (principal); G43.909 Migraine, unspecified, not intractable, without status migrainosus; M19.90 Unspecified osteoarthritis, unspecified site; Z88.8 Allergy status to other drugs, medicaments and biological substances; Z79.899 Other long term (current) drug therapy